=== PATIENT | female | born 1935 | race Caucasian/White ===

== ENCOUNTER → 2016-10-04 | Outpatient (CLI) | payer MEDICARE ==
--- NOTE | 2016-10-04 10:26 | US ---
EXAMINATION TYPE: US kidneys/renal and bladder DATE OF EXAM: 10/04/2016 COMPARISON: US & CT CLINICAL HISTORY: N18.3 CKD STAGE 3. EXAM MEASUREMENTS: Right Kidney: 9.3 x 4.2 x 3.8 cm Left Kidney: 9.7 x 4.3 x 4.2 cm Right Kidney: cyst 1.8 x 1.5 x 1.8 cm Left Kidney: cyst 2.3 x 2.3 x 2.8 cm laterally Bladder: not well distended Bilateral Jets seen: only left jet seen several times in 3 minutes of scan time There is no evidence for hydronephrosis at this point in time. No nephrolithiasis is seen. Right-catrachito ed kidney cyst has decreased in size slightly in the interval. Left-sided kidney cyst at the lower po le may shows some abnormal internal echoes and has increased in size slightly in the interval. The ur inary bladder is anechoic. Cortical medullary differentiation is maintained bilaterally, there is cortical thinning as on prior exam. Gallstones are noted incidentally. IMPRESSION: Kidney cysts are present bilaterally. Kidney cysts are not simple cystic in appearance on ultrasound. Follow-up is recommended. Cortical thinning compatible with patient's history of chronic kidney dise ase. Additional findings above.
== END | disposition home or self-care (01) ==
LOC: RADUSWWP 09:23
PROVIDERS: ATTEND Internal Medicine Nephrology
DX: N28.1 Cyst of kidney, acquired (principal); N18.3 Chronic kidney disease, stage 3 (moderate)
CPT/HCPCS: 76770

== ENCOUNTER → 2017-03-14 | Outpatient (CLI) | payer MEDICARE ==
--- NOTE | 2017-03-14 11:34 | US ---
EXAMINATION TYPE: US kidneys/renal and bladder DATE OF EXAM: 03/14/2017 COMPARISON: 10/04/2016 CLINICAL HISTORY: 81-year-old female N28.1 Renal Cysts. Follow up renal cysts TECHNIQUE: Multiple sonographic images of the kidneys and bladder are obtained. FINDINGS: Right Kidney: 9.5 x 4.0 x 4.5 cm without hydronephrosis. There is a medial anechoic to hypoechoic st ructure measuring 2.0 cm. Previously measuring 1.8 cm. Left Kidney: 9.4 x 4.0 x 3.4 cm without hydronephrosis. There is a lateral anechoic to hypoechoic str ucture measuring 2.6 cm. Previously measuring 2.8 cm. Partial distention of the bladder limits its evaluation. Both ureteral jets are visualized IMPRESSION: A 2.0 cm cystic lesion on the right (versus 1.8 cm, previously) and 2.6 cm on the left (2.8 cm, previ ously). Again, these do not appear to be entirely simple cysts at this time. Continued follow-up can be performed.
== END | disposition home or self-care (01) ==
LOC: RADUSWWP 09:00
PROVIDERS: ATTEND Internal Medicine Nephrology
DX: N28.1 Cyst of kidney, acquired (principal)
CPT/HCPCS: 76770

== ENCOUNTER → 2017-09-05 | Outpatient (CLI) | payer MEDICARE ==
--- NOTE | 2017-09-05 10:14 | US ---
EXAMINATION TYPE: US kidneys/renal and bladder DATE OF EXAM: 09/05/2017 COMPARISON: US 03/14/17 CLINICAL HISTORY: N28.1 Cyst of kidney, acquired. EXAM MEASUREMENTS: Right Kidney: 10.1 x 4.4 x 4.2 cm Left Kidney: 10.1 x 4.6 x 4.0 cm Post Void Residual Volume: 0 mL Right Kidney: Medial, Mid pole cyst = 2.0 x 2.0 x 1.7 cm (previously = 2.0 cm) Left Kidney: 2 adjacent, Lateral, mid pole cysts = 2.9 x 3.0 x 2.6 cm (previously 2.8 cm), 1.4 x 1.5 x 1.4 cm (not seen previously) Bladder: wnl Bilateral Jets seen: Yes Normal Post Void Residual: Yes Incidental finding of gallstones. IMPRESSION: 1. Bilateral renal cysts.
== END | disposition home or self-care (01) ==
LOC: RADUSWWP 08:55
PROVIDERS: ATTEND Internal Medicine Nephrology
DX: N28.1 Cyst of kidney, acquired (principal)
CPT/HCPCS: 76770

== ENCOUNTER 2020-04-28 14:15 | Inpatient (IN) | payer MEDICARE ==
--- NOTE | 2020-04-28 14:53 | ED ---
Lower Extremity Injury HPI - General Source: patient Mode of arrival: wheelchair Limitations: no limitations, physical limitation <Daniella Carrillo - Last Filed: 04/28/20 19:28> <Penny Bolanos - Last Filed: 05/05/20 16:18> - General Chief Complaint: Extremity Injury, Lower Stated Complaint: R Foot injury Time Seen by Provider: 04/28/20 14:29 - History of Present Illness Initial Comments: This is an 84-year-old female presenting today for chief complaint of right foot pain x 3 dasy. Patient states that she got out of bed on Sunday and struck her right foot on a bedpost. Patient states that her foot is black and blue and she can feel a pulling/painful sensation in the right calf. Patient admits to some mild foot swelling. Denies chest pain, shortness of breath, palpitations. She denies foot redness, or fevers. Patient denies cough, congestion. She denies orthopnea difficulty ambulating or shortness of breath on exertion. She denies lower extremity swelling. Patient HR is found to be elevated in triage-- patient denies history of anticoagulation use or atrial fibrillation. (Daniella Carrillo) - Related Data Home Medications Medication Instructions Recorded Confirmed Cholecalciferol [Vitamin D3 (25 25 mcg PO DAILY 04/28/20 04/28/20 Mcg = 1000 Iu)] Irbesartan/Hydrochlorothiazide 1 tab PO DAILY 04/28/20 04/28/20 [Irbesartan-Hctz 150-12.5 mg Tb] [place]-3 Fatty Acids/Fish Oil [Fish 1 cap PO DAILY 04/28/20 04/28/20 Oil 1,000 mg Softgel] Previous Rx's Medication Instructions Recorded Apixaban [Eliquis] 2.5 mg PO BID #60 tab 04/30/20 Allergies Allergy/AdvReac Type Severity Reaction Status Date / Time morphine AdvReac Nausea & Verified 04/28/20 15:55 Vomiting Review of Systems ROS Other: All systems not noted in ROS Statement are negative. <Daniella Carrillo - Last Filed: 04/28/20 19:28> ROS Other: All systems not noted in ROS Statement are negative. <Penny Bolanos - Last Filed: 05/05/20 16:18> ROS Statement: Those systems with pertinent positive or pertinent negative responses have been documented in the HPI. Past Medical History Past Medical History: Hypertension Additional Past Medical History / Comment(s): back pain, History of Any Multi-Drug Resistant Organisms: None Reported Past Surgical History: No Surgical Hx Reported Past Psychological History: No Psychological Hx Reported Smoking Status: Never smoker Past Alcohol Use History: None Reported Past Drug Use History: None Reported <Daniella Carrillo - Last Filed: 04/28/20 19:28> General Exam Limitations: no limitations, physical limitation <Daniella Carrillo - Last Filed: 04/28/20 19:28> - General Exam Comments Initial Comments: General: The patient is awake and alert, in no distress Eye: +3 mm pupils are equal, round and reactive to light, extra-ocular movements are intact. No nystagmus. There is normal conjunctiva bilaterally. No signs of icterus. Ears, nose, mouth and throat: There are moist mucous membranes and no oral lesions. Neck: The neck is supple, there is no tenderness or JVD. Cardiovascular: There is a increased rate and irregular rhythm. No murmur, rub or gallop is appreciated. Respiratory: Lungs are clear to auscultation, respirations are non-labored, breath sounds are equal. No wheezes, stridor, rales, or rhonchi. Musculoskeletal: On inspection of the right foot there is bruising over the dorsal aspect of the foot with tenderness to palpation. Achilles appears intact to palpation and there is plantar flexion with squeezing of the calf. Normal ROM, of the knees and ankle b/l with some calf tenderness wtih pointing of the right toe. NO obvious calf swelling, pain to palpation mid calf. Strength 5/5 of the LE b/l including at the knees, ankle and digits of the right foot equal in comparison to the left foot. Sensation intact of the LE b/l. Radial and DP pulses equal bilaterally 2+. Neurological: A&O x 3. CN II-XII intact grossly, There are no obvious motor or sensory deficits. Coordination appears grossly intact. Speech is normal. Skin: Skin is warm and dry and no rashes or lesions are noted. Psychiatric: Cooperative, appropriate mood & affect, normal judgment. (Dainella Carrillo) Course Vital Signs 03/17/21 03/17/21 03/17/21 14:18 15:37 17:46 Temperature 98.1 F Pulse Rate 110 H 113 H 113 H Pulse Rate [ Apical] Respiratory 18 16 16 Rate Blood Pressure 146/79 151/75 142/100 Blood Pressure [Right Arm] O2 Sat by Pulse 97 98 99 Oximetry 04/28/20 04/28/20 18:35 18:44 Temperature 99.9 F H Pulse Rate 103 H Pulse Rate [ 99 Apical] Respiratory 18 18 Rate Blood Pressure 145/79 Blood Pressure 146/71 [Right Arm] O2 Sat by Pulse 97 100 Oximetry Medical Decision Making - Lab Data Result diagrams: 04/28/20 15:05 04/28/20 15:05 <Daniella Carrillo - Last Filed: 04/28/20 19:28> - Lab Data Result diagrams: 05/02/20 06:53 05/05/20 07:38 <Penny Bolanos - Last Filed: 05/05/20 16:18> - Medical Decision Making 84-year-old female presenting to the ER for chief complaint of stepping right foot 3 days ago with her now right calf pain. Ultrasound negative for DVT. VQ scan low probably for pulmonary embolism she denies any chest pain shortness of breath orthopnea. Was found to be in atrial fibrillation with RVR and arrival. Patient has findings concerning for developing heart failure. Patient will be admitted for new-onset A. fib as well as CHF. Patient given one dose of lasix, cardiem drop/bolus initiated per request attending Yandy Bolanos. She spoke with Yandy Randhawa who accepted admission. Cardiology on consultation (Daniella Carrillo) I was available for consultation in the emergency department. The history and physical exam were done by the midlevel provider. I was consulted for this patients care. I reviewed the case with the midlevel provider and based on their presentation of the patient, I agree with the assessment, medical decision making and plan of care as documented. Chart was dictated using Nan[employer] dictation software. Attempts were made to correct any dictation errors however some typographical errors may persist. Patient was seen during a national state of emergency due to the Covid-19 pandemic. (Penny Bolanos) - Lab Data Lab Results 04/28/20 04/28/20 04/28/20 Range/Units 15:05 15:05 15:05 WBC 4.8 (3.8-10.6) k/uL RBC 4.49 (3.80-5.40) m/uL Hgb 13.4 (11.4-16.0) gm/dL Hct 39.8 (34.0-46.0) % MCV 88.6 (80.0-100.0) fL MCH 29.9 (25.0-35.0) pg MCHC 33.7 (31.0-37.0) g/dL RDW 12.5 (11.5-15.5) % Plt Count 362 (150-450) k/uL MPV 6.7 Neutrophils % 80 % Lymphocytes % 8 % Monocytes % 9 % Eosinophils % 1 % Basophils % 1 % Neutrophils # 3.9 (1.3-7.7) k/uL Lymphocytes # 0.4 L (1.0-4.8) k/uL Monocytes # 0.4 (0-1.0) k/uL Eosinophils # 0.0 (0-0.7) k/uL Basophils # 0.0 (0-0.2) k/uL D-Dimer 1.63 H (<0.60) mg/L FEU Sodium 129 L (137-145) mmol/L Potassium 4.4 (3.5-5.1) mmol/L Chloride 96 L (98-107) mmol/L Carbon Dioxide 19 L (22-30) mmol/L Anion Gap 14 mmol/L BUN 47 H (7-17) mg/dL Creatinine 1.65 H (0.52-1.04) mg/dL Est GFR (CKD-EPI)AfAm 33 (>60 ml/min/1.73 sqM) Est GFR (CKD-EPI)NonAf 28 (>60 ml/min/1.73 sqM) Glucose 118 H (74-99) mg/dL Calcium 9.5 (8.4-10.2) mg/dL Magnesium 1.7 (1.6-2.3) mg/dL Total Bilirubin 0.5 (0.2-1.3) mg/dL AST 32 (14-36) U/L ALT 16 (4-34) U/L Alkaline Phosphatase 89 (38-126) U/L Troponin I (0.000-0.034) ng/mL NT-Pro-B Natriuret Pep pg/mL Total Protein 8.1 (6.3-8.2) g/dL Albumin 4.4 (3.5-5.0) g/dL 04/28/20 04/28/20 Range/Units 15:05 15:05 WBC (3.8-10.6) k/uL RBC (3.80-5.40) m/uL Hgb (11.4-16.0) gm/dL Hct (34.0-46.0) % MCV (80.0-100.0) fL MCH (25.0-35.0) pg MCHC (31.0-37.0) g/dL RDW (11.5-15.5) % Plt Count (150-450) k/uL MPV Neutrophils % % Lymphocytes % % Monocytes % % Eosinophils % % Basophils % % Neutrophils # (1.3-7.7) k/uL Lymphocytes # (1.0-4.8) k/uL Monocytes # (0-1.0) k/uL Eosinophils # (0-0.7) k/uL Basophils # (0-0.2) k/uL D-Dimer (<0.60) mg/L FEU Sodium (137-145) mmol/L Potassium (3.5-5.1) mmol/L Chloride (98-107) mmol/L Carbon Dioxide (22-30) mmol/L Anion Gap mmol/L BUN (7-17) mg/dL Creatinine (0.52-1.04) mg/dL Est GFR (CKD-EPI)AfAm (>60 ml/min/1.73 sqM) Est GFR (CKD-EPI)NonAf (>60 ml/min/1.73 sqM) Glucose (74-99) mg/dL Calcium (8.4-10.2) mg/dL Magnesium (1.6-2.3) mg/dL Total Bilirubin (0.2-1.3) mg/dL AST (14-36) U/L ALT (4-34) U/L Alkaline Phosphatase (38-126) U/L Troponin I <0.012 (0.000-0.034) ng/mL NT-Pro-B Natriuret Pep 2170 pg/mL Total Protein (6.3-8.2) g/dL Albumin (3.5-5.0) g/dL Critical Care Time Critical Care Time: Yes <Penny Bolanos - Last Filed: 05/05/20 16:18> Critical Care Time: 32 minutes - identification that patient in afib with rvr requiring iv cardizem (Penny Bolanos) Disposition Is patient prescribed a controlled substance at d/c from ED?: No Time of Disposition: 18:14 Decision to Admit Reason: Admit from EC Decision Date: 04/28/20 Decision Time: 18:14 <Daniella Carrillo - Last Filed: 04/28/20 19:28> <Penny Bolanos - Last Filed: 05/05/20 16:18> Clinical Impression: Traumatic ecchymosis of right foot, Right calf pain, New onset atrial fibrillation, New onset of congestive heart failure Disposition: ADMITTED IP TO THIS HOSP Condition: Stable
[2020-04-28 15:20] LABS: Basophils % (A) 1 %; Eosinophils % (A) 1 %; HCT 39.8 % (34.0-46.0); HGB 13.4 gm/dL (11.4-16.0); Lymphocytes # (A) 0.4 k/uL (1.0-4.8); Lymphocytes % (A) 8 %; MCH 29.9 pg (25.0-35.0); MCHC 33.7 g/dL (31.0-37.0); MCV 88.6 fL (80.0-100.0); Mean Platelet Volume 6.7; Monocytes # (A) 0.4 k/uL (0-1.0); Monocytes % (A) 9 %; Neutrophils # (A) 3.9 k/uL (1.3-7.7); Neutrophils % (A) 80 %; Platelet Count 362 k/uL (150-450); RBC 4.49 m/uL (3.80-5.40); RDW 12.5 % (11.5-15.5); WBC 4.8 k/uL (3.8-10.6)
[2020-04-28 15:22] LABS: Potassium 4.4 mmol/L (3.5-5.1)
[2020-04-28 15:23] LABS: Albumin 4.4 g/dL (3.5-5.0); Calcium 9.5 mg/dL (8.4-10.2); Magnesium 1.7 mg/dL (1.6-2.3); Total Bilirubin 0.5 mg/dL (0.2-1.3); Total Protein 8.1 g/dL (6.3-8.2)
--- NOTE | 2020-04-28 15:44 | XR ---
EXAMINATION TYPE: XR chest 2V DATE OF EXAM: 04/28/2020 COMPARISON: Chest x-ray January 12, 2015 HISTORY: New onset atrial fibrillation. Recent fall injury. TECHNIQUE: Frontal and lateral views of the chest are obtained. FINDINGS: There is chronic parenchymal change bilaterally redemonstrated. Persistent cardiomegaly wi th atherosclerotic aorta. No pleural effusion or pneumothorax seen bilaterally. Increasing reticular interstitial and faint alveolar prominence bilaterally The osseous structures are intact. IMPRESSION: Cardiomegaly and chronic parenchymal changes with suggestion of new bilateral multifocal edema and/or infiltrates. Favor CHF exacerbation. Underlying infection such as covid-19 not excluded , correlate clinically.
[2020-04-28] MEDS ORDERED: SODIUM CHLORIDE 0.9% 1,000 ML IV SCH (15:45)
--- NOTE | 2020-04-28 15:46 | XR ---
EXAMINATION TYPE: XR tibia fibula RT DATE OF EXAM: 04/28/2020 CLINICAL HISTORY: Fall injury with bruising swelling and pain. TECHNIQUE: Two views of the right leg are obtained. COMPARISON: None. FINDINGS: Osseous structures are demineralized. There are suspected subacute or chronic fracture thr ough proximal fibular diaphysis. No acute fracture or dislocation is seen. Severe narrowing patellofe moral compartment right knee. The ankle joint appears within normal limits. Mild to moderate diffuse subcutaneous edema noted. IMPRESSION: There is no acute fracture or dislocation seen in the right tibia or fibula.
--- NOTE | 2020-04-28 15:47 | XR ---
EXAMINATION TYPE: XR foot complete RT DATE OF EXAM: 04/28/2020 CLINICAL HISTORY: Fall injury with pain TECHNIQUE: Frontal, lateral, and oblique images of the right foot are obtained. COMPARISON: None FINDINGS: Osseous structures are demineralized. Pes planus deformity. Moderate size inferior calcanea l spur There is no acute fracture/dislocation evident in the right foot. The joint spaces in the rig ht foot appear within normal limits. [id number] diffuse subcutaneous edema. IMPRESSION: There is no acute fracture or dislocation in the right foot.
--- NOTE | 2020-04-28 15:48 | US ---
EXAMINATION TYPE: US venous doppler duplex LE RT DATE OF EXAM: 04/28/2020 3:40 PM COMPARISON: NONE CLINICAL HISTORY: calf pain right. hurt toe pain SIDE PERFORMED: Right TECHNIQUE: The lower extremity deep venous system is examined utilizing real time linear array sonog tamar with graded compression, doppler sonography and color-flow sonography. VESSELS IMAGED: Common Femoral Vein Deep Femoral Vein Greater Saphenous Vein * Femoral Vein Popliteal Vein Small Saphenous Vein * Proximal Calf Veins (* superficial vessels) Right Leg: Negative for DVT Grayscale, color doppler, spectral doppler imaging performed of the deep veins of the right lower ext remity. There is normal flow, compressibility, vascular waveforms. IMPRESSION: No ultrasound evidence for acute DVT in the right lower extremity.
[2020-04-28] MEDS ORDERED: FUROSEMIDE 10 MG/ML 4 ML VIAL IV STA (16:11)
--- NOTE | 2020-04-28 17:30 | NM ---
EXAMINATION TYPE: NM pul vent and perfuse DATE OF EXAM: 04/28/2020 COMPARISON: NONE HISTORY: Calf pain. Elevated d-dimer. TECHNIQUE: Utilizing inhalation of 67 mCi Tc 99m DTPA aerosol and intravenous injection of 5.2 mCi o f Tc 99m MAA, ventilation and perfusion images are acquired post injection in multiple projections. FINDINGS: There are small matching subsegmental perfusion and ventilation defects in both upper lobes. There is no mismatch. Is fairly normal perfusion of the lower lobes.. IMPRESSION: There is low probability of pulmonary embolism. There is evidence of mild airway disease.
[2020-04-28] MEDS ORDERED: DILTIAZEM DRIP BOLUS FROM BAG 1 MG SOLN IV ONE (17:48)
[2020-04-28] MEDS ORDERED: DILTIAZEM 125 MG in SODIUM CHLORIDE 0.9% 100 ML IV SCH (18:00)
[2020-04-28] MEDS ORDERED: NALOXONE 0.4 MG/ML 1 ML VIAL IV PRN (18:13)
[2020-04-29] MEDS ORDERED: HEPARIN SODIUM,PORCINE 5,000 UNIT/ML 1 ML VIAL IV ONE (08:35)
[2020-04-29] MEDS ORDERED: HEPARIN SODIUM,PORCINE 5,000 UNIT/ML 1 ML VIAL IV PRN (08:35)
[2020-04-29] MEDS ORDERED: LOSARTAN-HCTZ 50-12.5 MG 1 EACH TAB PO SCH (09:00)
[2020-04-29 09:10] LABS: Basophils % (A) 0 %; Eosinophils % (A) 0 %; HCT 42.7 % (34.0-46.0); Lymphocytes # (A) 0.4 k/uL (1.0-4.8); Lymphocytes % (A) 8 %; MCH 29.4 pg (25.0-35.0); MCHC 32.9 g/dL (31.0-37.0); MCV 89.2 fL (80.0-100.0); Mean Platelet Volume 6.4; Monocytes # (A) 0.5 k/uL (0-1.0); Monocytes % (A) 11 %; Neutrophils # (A) 3.6 k/uL (1.3-7.7); Neutrophils % (A) 78 %; Platelet Count 355 k/uL (150-450); RBC 4.78 m/uL (3.80-5.40); RDW 12.6 % (11.5-15.5); WBC 4.6 k/uL (3.8-10.6)
[2020-04-29 09:18] LABS: Partial Thromboplastin Time 24.9 sec (22.0-30.0); Prothrombin Time 10.4 sec (9.0-12.0)
[2020-04-29] MEDS: METOPROLOL TARTRATE 25 MG TAB PO SCH ×2 (09:58→21:02)
[2020-04-29] MEDS: HEPARIN SOD,PORK IN 0.45% NACL 25,000 UNIT in 0.45% NACL 1 250ML.BAG IV SCH (09:59)
[2020-04-29 11:08] LABS: Calcium 9.6 mg/dL (8.4-10.2); Potassium 4.6 mmol/L (3.5-5.1)
[2020-04-29] MEDS: DILTIAZEM ORAL 30 MG TAB PO SCH ×3 (12:28→21:02)
[2020-04-29] MEDS: SODIUM CHLORIDE 0.9% 1,000 ML IV SCH (12:29)
--- NOTE | 2020-04-29 13:06 | ECHOF ---
Referral Reason:afib, LV function MEASUREMENTS -------- HEIGHT: 152.4 cm WEIGHT: 70.3 kg BP: RVIDd: 3.1 cm (< 3.3) IVSd: 1.5 cm (0.6 - 1.1) LVIDd: 2.9 cm (3.9 - 5.3) LVPWd: 1.4 cm (0.6 - 1.1) IVSs: 1.9 cm LVIDs: 2.7 cm LVPWs: 1.4 cm LA Diam: 3.5 cm (2.7 - 3.8) LAESV Index (A-L): 18.45 ml/m Ao Diam: 3.1 cm (2.0 - 3.7) AV Cusp: 1.7 cm (1.5 - 2.6) MV EXCURSION: 20.824 mm (> 18.000) MV EF SLOPE: 119 mm/s (70 - 150) EPSS: 0.6 cm RAP: 5.00 mmHg RVSP: 23.14 mmHg FINDINGS -------- Atrial fibrillation. This was a technically adequate study. The left ventricular size is normal. There is moderate concentric left ventricular hypertrophy. O verall left ventricular systolic function is normal with, an EF between 60 - 65 %. The right ventricle is normal in size. Normal LA size by volume 22+/-6 ml/m2. The right atrium is normal in size. Interatrial and interventricular septum intact. There is mild aortic valve sclerosis. Mild mitral annular calcification present. Mild tricuspid regurgitation present. Right ventricular systolic pressure is normal at < 35 mmHg. The pulmonic valve was not well visualized. The aortic root size is normal. Normal inferior vena cava with normal inspiratory collapse consistent with estimated right atrial pre ssure of 5 mmHg. There is no pericardial effusion. CONCLUSIONS -------- 1. The left ventricular size is normal. 2. There is moderate concentric left ventricular hypertrophy. 3. Overall left ventricular systolic function is normal with, an EF between 60 - 65 %. 4. There is mild aortic valve sclerosis. 5. Mild mitral annular calcification present. 6. Mild tricuspid regurgitation present. 7. There is no pericardial effusion. BINMAN: Ros Latif RDCS
--- NOTE | 2020-04-29 13:18 | P.CRDCN ---
History of Present Illness Consult date: 04/29/20 History of present illness: CHIEF COMPLAINT: new onset A. fib HISTORY OF PRESENT ILLNESS: This is a 84-year-old female with a past medical history significant for hypertension. We have been asked to see the patient in consultation for new-onset atrial fibrillation. Patient initially presented to the hospital due to right foot pain. Patient apparently struck her foot on a bedpost a few days prior. Patient was found to be positive for coronavirus. Patient was found to be in A. fib with RVR in the emergency room. Patient has no prior history of atrial fibrillation. Patient was started on IV cardizem. She remains in atrial fibrillation with controlled ventricular rate. DIAGNOSTICS: EKG reveals atrial fibrillation with RVR. left axis deviation. Chest xray cardiomegaly and chronic parenchymal changes with suggestion of new bilateral multifocal edema and/or infiltrates. right lower extremity Doppler: Negative for DVT VQ scan: Low probability for PE Laboratory data: WBC 4.6. Hemoglobin 14.0. Platelet count 355. Sodium 129. Potassium 4.4. BUN 47. Creatinine 1.65. Magnesium 1.7. Current home cardiac medications include Irbesartan-hctz 150-12.5mg daily REVIEW OF SYSTEMS: Thorough review of systems not completed secondary to limited evaluation/examination and due to Covid19 PHYSICAL EXAM: Thorough physical exam not completed secondary to limited evaluation/examination and due to Covid19 ASSESSMENT: Acute Covid 19 New-onset atrial fibrillation with RVR Hypertension Right foot injury Acute kidney injury, unknown if CKD PLAN: Obtain 2D echo to assess cardiac structure and function Begin metoprolol 25 mg twice a day Discontinue IV Cardizem Begin IV heparin Check TSH Further recommendations pending patient's course Nurse practitioner note has been reviewed by physician. Signing provider agrees with the documented findings, assessment, and plan of care. Past Medical History Past Medical History: Hypertension Additional Past Medical History / Comment(s): back pain, History of Any Multi-Drug Resistant Organisms: None Reported Past Surgical History: No Surgical Hx Reported Past Psychological History: No Psychological Hx Reported Smoking Status: Never smoker Past Alcohol Use History: None Reported Past Drug Use History: None Reported Medications and Allergies Home Medications Medication Instructions Recorded Confirmed Type Cholecalciferol [Vitamin D3 (25 25 mcg PO DAILY 04/28/20 04/28/20 History Mcg = 1000 Iu)] Irbesartan/Hydrochlorothiazide 1 tab PO DAILY 04/28/20 04/28/20 History [Irbesartan-Hctz 150-12.5 mg Tb] [place]-3 Fatty Acids/Fish Oil [Fish 1 cap PO DAILY 04/28/20 04/28/20 History Oil 1,000 mg Softgel] Allergies Allergy/AdvReac Type Severity Reaction Status Date / Time morphine AdvReac Nausea & Verified 04/28/20 15:55 Vomiting Physical Exam Vitals: Vital Signs Temp Pulse Pulse Resp BP BP Pulse Ox 04/29/20 02:00 99 18 04/28/20 18:44 99.9 F H 99 18 146/71 100 04/28/20 18:35 103 H 18 145/79 97 04/28/20 17:46 113 H 16 142/100 99 04/28/20 15:37 113 H 16 151/75 98 04/28/20 14:18 98.1 F 110 H 18 146/79 97 Intake and Output 04/28/20 04/29/20 04/29/20 22:59 06:59 14:59 Output Total 100 Balance -100 Output: Urine 100 Other: Weight 68.5 kg Results 04/29/20 08:56 04/29/20 08:56 Cardiac Enzymes 04/28/20 04/28/20 Range/Units 15:05 15:05 AST 32 (14-36) U/L Troponin I <0.012 (0.000-0.034) ng/mL Coagulation 04/29/20 Range/Units 08:56 PT 10.4 (9.0-12.0) sec APTT 24.9 (22.0-30.0) sec CBC 04/28/20 04/29/20 Range/Units 15:05 08:56 WBC 4.8 4.6 (3.8-10.6) k/uL RBC 4.49 4.78 (3.80-5.40) m/uL Hgb 13.4 14.0 (11.4-16.0) gm/dL Hct 39.8 42.7 (34.0-46.0) % Plt Count 362 355 (150-450) k/uL Comprehensive Metabolic Panel 04/28/20 Range/Units 15:05 Sodium 129 L (137-145) mmol/L Potassium 4.4 (3.5-5.1) mmol/L Chloride 96 L (98-107) mmol/L Carbon Dioxide 19 L (22-30) mmol/L BUN 47 H (7-17) mg/dL Creatinine 1.65 H (0.52-1.04) mg/dL Glucose 118 H (74-99) mg/dL Calcium 9.5 (8.4-10.2) mg/dL AST 32 (14-36) U/L ALT 16 (4-34) U/L Alkaline Phosphatase 89 (38-126) U/L Total Protein 8.1 (6.3-8.2) g/dL Albumin 4.4 (3.5-5.0) g/dL Current Medications Generic Name Dose Route Start Last Admin Trade Name Freq PRN Reason Stop Dose Admin HCTZ/Losartan Potassium 1 each 04/29/20 09:00 04/29/20 09:58 Losartan-Hctz 50-12.5 Mg 1 Each Tab PO 1 each DAILY ALINA Administration Heparin Sodium (Porcine) 0 unit 04/29/20 08:35 Heparin Sodium,Porcine 5,000 Unit/Ml 1 Ml Vial IV PER PROTOCOL PRN Low PTT Protocol Diltiazem HCl 125 mg/ Sodium 125 mls @ 5 mls/hr 04/28/20 18:00 04/28/20 18:33 Chloride IV 2.5 mg/hr .Q24H ALINA 2.5 mls/hr Administration 5 MG/HR Heparin Sodium/Sodium Chloride 250 mls @ 8.22 mls/hr 04/29/20 08:45 04/29/20 09:59 25,000 unit/ Sodium Chloride IV 12 units/kg/hr .Q24H ALINA 8.22 mls/hr Administration Protocol 12 UNITS/KG/HR Metoprolol Tartrate 25 mg 04/29/20 09:00 04/29/20 09:58 Metoprolol Tartrate 25 Mg Tab PO 25 mg BID ALINA Administration Naloxone HCl 0.2 mg 04/28/20 18:13 Naloxone 0.4 Mg/Ml 1 Ml Vial IV Q2M PRN Opioid Reversal Intake and Output 04/28/20 04/29/20 04/29/20 22:59 06:59 14:59 Output Total 100 Balance -100 Output: Urine 100 Other: Weight 68.5 kg 04/29/20 08:56 04/28/20 15:05
--- NOTE | 2020-04-29 22:16 | P.HPIM ---
History of Present Illness H&P Date: 04/29/20 Chief Complaint: Dizzy History of presenting complaint: This is a very pleasant 84-year-old patient of Dr. Sands. She presented to the ER after she had been complaining of right foot pain for 3 days. She told her she got out of bed on Sunday and struck her right foot on a bedpost. High right toe pink especially was black and blue and she had some painful sensation in the right calf. She felt a bit dizzy yesterday. No chest pain or palpitations. Decided to present to the ER. She is found to be in atrial fibrillation. With elevated ventricular rate. She was started on a Cardizem drip. Review of systems: GEN.: Tired EYES: None HEENT: None NECK: None RESPIRATORY: None CARDIOVASCULAR: None GASTROINTESTINAL: None GENITOURINARY: None MUSCULOSKELETAL: Joint pains LYMPHATICS: None HEMATOLOGICAL: None PSYCHIATRY: None NEUROLOGICAL: None Past medical history to include: Hypertension, back pain Social history: Daughter lives with her. No history of smoking or alcohol Family history: Reviewed, noncontributory to presentation Physical examination: VITAL SIGNS: 98.1, 110, 18, 146/79, 97% on room air GENERAL: BMI 29.5, declining in bed, awake. EYES: Pupils equal. Conjunctiva normal. HEENT: External appearance of nose and ears normal, oral cavity grossly normal. NECK: JVD not raised; masses not palpable. HEART: Heart sounds irregular; no edema. LUNGS: Respiratory rate normal; clear to auscultation. ABDOMEN: Soft, nontender, liver spleen not palpable, no masses palpable. PSYCH: Alert and oriented x3; mood and affect normal. NEUROLOGICAL: Cranial nerves grossly intact; no facial asymmetry, power and sensation grossly intact. LYMPHATICS: No lymph nodes palpable in the axilla and neck INVESTIGATIONS, reviewed in the clinical context: WBC 4.8 hemoglobin 13.4 platelets 362 sodium 129 bun 47 creatinine 1.65 Coronavirus [PCR] detected TSH 2.4 pro-BNP 2170 Troponin I less than 0.012 EKG tracing personally reviewed by me-atrial fibrillation with a rate of 128 Right foot [id number] for fracture Ultrasound venous Doppler right lower extremity: Negative for DVT Chest x-ray film personally reviewed by me-borderline cardiomegaly, bilateral infiltrates versus edema 2-D echocardiogram: Atrial fibrillation. EF 60-65%. Moderate concentric LVH Assessment and plan: -New onset of atrial fibrillation with a rapid ventricular rate. Patient started IV Cardizem., IV heparin -Acute congestive heart failure/pulmonary edema from underlying atrial fibrillation. Patient did get a dose of IV Lasix in the ER. -Essential hypertension. Patient now on Lopressor. Hyzaar and oral Cardizem -IV heparin monitoring -Hypertensive heart disease Cardiology consulted. Care was discussed with the patient. Will be put on anticoagulation. Given the low blood pressure. Will DC Hyzaar Event note Patient had an episode of about 2 minutes of slumping on the bed. Started throwing up. Telemetry -did not show any pauses or new arrhythmia. Heart rate was controlled. It was felt to be vasovagal. Patient Did come back to her normal self Past Medical History Past Medical History: Hypertension Additional Past Medical History / Comment(s): back pain, History of Any Multi-Drug Resistant Organisms: None Reported Past Surgical History: No Surgical Hx Reported Past Psychological History: No Psychological Hx Reported Smoking Status: Never smoker Past Alcohol Use History: None Reported Past Drug Use History: None Reported Medications and Allergies Home Medications Medication Instructions Recorded Confirmed Type Cholecalciferol [Vitamin D3 (25 25 mcg PO DAILY 04/28/20 04/28/20 History Mcg = 1000 Iu)] Irbesartan/Hydrochlorothiazide 1 tab PO DAILY 04/28/20 04/28/20 History [Irbesartan-Hctz 150-12.5 mg Tb] [place]-3 Fatty Acids/Fish Oil [Fish 1 cap PO DAILY 04/28/20 04/28/20 History Oil 1,000 mg Softgel] Allergies Allergy/AdvReac Type Severity Reaction Status Date / Time morphine AdvReac Nausea & Verified 04/28/20 15:55 Vomiting Physical Exam Vitals: Vital Signs Temp Pulse Pulse Resp BP BP Pulse Ox 04/29/20 02:00 99 18 04/28/20 18:44 99.9 F H 99 18 146/71 100 04/28/20 18:35 103 H 18 145/79 97 04/28/20 17:46 113 H 16 142/100 99 04/28/20 15:37 113 H 16 151/75 98 04/28/20 14:18 98.1 F 110 H 18 146/79 97 Intake and Output 04/28/20 04/29/2004/29/21 22:59 06:59 14:59 Output Total 100 Balance -100 Output: Urine 100 Other: Weight 68.5 kg Results CBC & Chem 7: 04/29/20 08:56 04/29/20 08:56 Labs: Abnormal Lab Results - Last 24 Hours (Table) 04/28/20 04/28/20 04/28/20 Range/Units 15:05 15:05 15:05 Lymphocytes # 0.4 L (1.0-4.8) k/uL D-Dimer 1.63 H (<0.60) mg/L FEU Sodium 129 L (137-145) mmol/L Chloride 96 L (98-107) mmol/L Carbon Dioxide 19 L (22-30) mmol/L BUN 47 H (7-17) mg/dL Creatinine 1.65 H (0.52-1.04) mg/dL Glucose 118 H (74-99) mg/dL Coronavirus (PCR) (Not Detectd) 04/28/20 04/29/20 Range/Units 17:46 08:56 Lymphocytes # 0.4 L (1.0-4.8) k/uL D-Dimer (<0.60) mg/L FEU Sodium (137-145) mmol/L Chloride (98-107) mmol/L Carbon Dioxide (22-30) mmol/L BUN (7-17) mg/dL Creatinine (0.52-1.04) mg/dL Glucose (74-99) mg/dL Coronavirus (PCR) Detected A (Not Detectd)
[2020-04-30] MEDS: MELATONIN 3 MG TABLET PO PRN ×2 (00:19→21:04)
[2020-04-30 07:58] LABS: Basophils % (A) 1 %; Eosinophils % (A) 0 %; HCT 35.5 % (34.0-46.0); HGB 11.9 gm/dL (11.4-16.0); Lymphocytes # (A) 0.5 k/uL (1.0-4.8); Lymphocytes % (A) 13 %; MCH 30.1 pg (25.0-35.0); MCHC 33.7 g/dL (31.0-37.0); MCV 89.4 fL (80.0-100.0); Mean Platelet Volume 6.9; Monocytes # (A) 0.3 k/uL (0-1.0); Monocytes % (A) 8 %; Neutrophils # (A) 2.6 k/uL (1.3-7.7); Neutrophils % (A) 76 %; Platelet Count 296 k/uL (150-450); RBC 3.97 m/uL (3.80-5.40); RDW 12.1 % (11.5-15.5); WBC 3.4 k/uL (3.8-10.6)
--- NOTE | 2020-04-30 07:59 | XR ---
EXAMINATION TYPE: XR chest 1V DATE OF EXAM: 04/30/2020 COMPARISON: 04/28/2020 INDICATION: Coated TECHNIQUE: Single frontal view of the chest is obtained. FINDINGS: The heart size is normal. The pulmonary vasculature is normal. Right basilar infiltrates are present. Findings are worsening over the interval. Nonspecific infiltra shannan in the mid and upper lung brandt IMPRESSION: 1. Worsening bilateral lung infiltrates greater at the lung bases. Findings can be compatible with at ypical pneumonia.
[2020-04-30] MEDS: METOPROLOL TARTRATE 25 MG TAB PO SCH (08:17)
[2020-04-30] MEDS: DILTIAZEM ORAL 30 MG TAB PO SCH (08:17)
[2020-04-30] MEDS: SODIUM CHLORIDE 0.9% 1,000 ML IV SCH ×2 (08:18→18:32)
[2020-04-30 08:22] LABS: Calcium 8.2 mg/dL (8.4-10.2)
[2020-04-30] MEDS: APIXABAN 2.5 MG TABLET PO SCH ×2 (11:50→21:04)
[2020-04-30] MEDS: HEPARIN SOD,PORK IN 0.45% NACL 25,000 UNIT in 0.45% NACL 1 250ML.BAG IV SCH (11:58)
--- NOTE | 2020-04-30 15:29 | P.PN ---
Subjective Progress Note Date: 04/30/20 CHIEF COMPLAINT: new onset A. fib HISTORY OF PRESENT ILLNESS: 04/29/2020 This is a 84-year-old female with a past medical history significant for hypertension. We have been asked to see the patient in consultation for new- onset atrial fibrillation. Patient initially presented to the hospital due to right foot pain. Patient apparently struck her foot on a bedpost a few days prior. Patient was found to be positive for coronavirus. Patient was found to be in A. fib with RVR in the emergency room. Patient has no prior history of atrial fibrillation. Patient was started on IV cardizem. She remains in atrial fibrillation with controlled ventricular rate. EKG reveals atrial fibrillation with RVR. left axis deviation. Chest xray cardiomegaly and chronic parenchymal changes with suggestion of new bilateral multifocal edema and/or infiltrates. right lower extremity Doppler: Negative for DVT VQ scan: Low probability for PE Laboratory data: WBC 4.6. Hemoglobin 14.0. Platelet count 355. Sodium 129. Potassium 4.4. BUN 47. Creatinine 1.65. Magnesium 1.7. Current home cardiac medications include Irbesartan-hctz 150-12.5mg daily 04/30/2020 Per nursing, patient had an episode yesterday where she was sitting beside the bed and became pale, started vomiting, and was unresponsive for about 30 seconds. Her blood pressure at that time was 64/44. Her Cardizem was held yesterday. Patient's blood pressure this morning was 103/55. She received her dose of Cardizem and metoprolol. Since administration, the patient became bradycardic with a heart rate in the 40s. She remains on IV heparin. Echocardiogram completed revealed ejection fraction 60-65% with mild tricuspid regurgitation. PHYSICAL EXAM: Thorough physical exam not completed secondary to limited evaluation/examination and due to Covid19 ASSESSMENT: Acute Covid 19 New-onset atrial fibrillation with RVR Hypertension Right foot injury Acute kidney injury, unknown if CKD Bradycardia Hypotension PLAN: Discontinue Cardizem Change dosing of metoprolol to 12.5 mg 3 times a day Continue telemetry monitoring Discontinue IV heparin Begin Eliquis 2.5 mg twice a day Further recommendations pending patient's course Nurse practitioner note has been reviewed by physician. Signing provider agrees with the documented findings, assessment, and plan of care. Objective - Vital Signs Vital signs: Vital Signs Temp 98.1 F 04/30/20 12:00 Pulse 60 04/30/20 14:00 Resp 18 04/30/20 14:00 BP 101/56 04/30/20 12:00 Pulse Ox 97 04/30/20 12:00 Intake & Output 04/29/20 04/30/20 04/30/20 18:59 06:59 18:59 Intake Total 1201.923 283.052 240 Output Total 1 410 Balance 1200.923 -126.948 240 Weight 66.5 kg Intake: Intake, IV Titration 951.923 43.052 Amount Heparin Sod,Pork in 0.45% 51.923 43.052 NaCl 25,000 unit In 0.45 % NaCl 1 250ml.bag @ 12 UNITS/KG/HR 8.22 mls/hr IV .Q24H [facility] Rx#: [id number] Sodium Chloride 0.9% 1, 900 000 ml @ 75 mls/hr IV . [id number] [facility] Rx#:[id number] Oral 250 240 240 Output: Urine 410 Urine/Stool Mix 1 Other: Voiding Method Bedside Commode Bedpan # Voids 1 1 - Labs CBC & Chem 7: 04/30/20 06:47 04/30/20 06:47 Labs: Abnormal Lab Results - Last 24 Hours (Table) 04/29/20 04/29/20 04/30/20 Range/Units 15:18 22:51 06:47 WBC 3.4 L (3.8-10.6) k/uL Lymphocytes # 0.5 L (1.0-4.8) k/uL APTT 98.0 H 59.8 H (22.0-30.0) sec Sodium (137-145) mmol/L Carbon Dioxide (22-30) mmol/L BUN (7-17) mg/dL Creatinine (0.52-1.04) mg/dL Glucose (74-99) mg/dL Calcium (8.4-10.2) mg/dL 04/30/20 Range/Units 06:47 WBC (3.8-10.6) k/uL Lymphocytes # (1.0-4.8) k/uL APTT (22.0-30.0) sec Sodium 130 L (137-145) mmol/L Carbon Dioxide 20 L (22-30) mmol/L BUN 52 H (7-17) mg/dL Creatinine 1.55 H (0.52-1.04) mg/dL Glucose 101 H (74-99) mg/dL Calcium 8.2 L (8.4-10.2) mg/dL
[2020-04-30] MEDS: METOPROLOL TARTRATE 12.5 MG TAB PO SCH ×2 (16:51→21:04)
[2020-04-30] MEDS ORDERED: FUROSEMIDE 10 MG/ML 10 ML VIAL IV STA (17:37)
--- NOTE | 2020-04-30 20:36 | P.PN ---
Progress Note - Text Progress Note Date: 04/30/20 Chief Complaint: Dizzy History of presenting complaint: This is a very pleasant 84-year-old patient of Dr. Sands. She presented to the ER after she had been complaining of right foot pain for 3 days. She told her she got out of bed on Sunday and struck her right foot on a bedpost. High right toe pink especially was black and blue and she had some painful sensation in the right calf. She felt a bit dizzy yesterday. No chest pain or palpitations. Decided to present to the ER. She is found to be in atrial fibrillation. With elevated ventricular rate. She was started on a Cardizem drip. Admitted with uncontrolled atrial flutter fibrillation. Acute CHF exacerbation. Today-atrial fibrillation better control. I was called in the afternoon that patient's blood pressure is running a bit low. Also more short of breath. I did order dose of IV Lasix. IV fluids discontinued. Patient also was bradycardic earlier Review of systems: Was done for constitutional, cardiovascular, GI, pulmonary. relevant finding as above Active Medications Apixaban (Apixaban 2.5 Mg Tablet) 2.5 mg PO BID [facility] Last Admin: 04/30/20 11:50 Dose: 2.5 mg Documented by: Melatonin (Melatonin 3 Mg Tablet) 3 mg PO HS PRN PRN Reason: Insomnia Last Admin: 04/30/20 00:19 Dose: 3 mg Documented by: Metoprolol Tartrate (Metoprolol Tartrate 12.5 Mg Tab) 12.5 mg PO TID [facility] Last Admin: 04/30/20 16:51 Dose: Not Given Documented by: Naloxone HCl (Naloxone 0.4 Mg/Ml 1 Ml Vial) 0.2 mg IV Q2M PRN PRN Reason: Opioid Reversal Past medical history to include: Hypertension, back pain Social history: Daughter lives with her. No history of smoking or alcohol Family history: Reviewed, noncontributory to presentation Physical examination: VITAL SIGNS: 98.1, 45, 18, 101/56, 97% room air GENERAL: Sitting up in a chair a bit tired EYES: Pupils equal. Conjunctiva normal. HEENT: External appearance of nose and ears normal, oral cavity grossly normal. NECK: JVD unable to assess masses not palpable. HEART: Heart sounds irregular; no edema. LUNGS: Respiratory rate increased, basal crackles ABDOMEN: Soft, nontender, liver spleen not palpable, no masses palpable. PSYCH: Alert and oriented x3; mood and affect normal. Also put the patient on Decadron INVESTIGATIONS, reviewed in the clinical context: Chest x-ray [April 30]: Basilar infiltrates April 30: WBC 3.4 hemoglobin 11.9 potassium 4 bun 52 creatinine 1.55 WBC 4.8 hemoglobin 13.4 platelets 362 sodium 129 bun 47 creatinine 1.65 Coronavirus [PCR] detected TSH 2.4 pro-BNP 2170 Troponin I less than 0.012 EKG tracing personally reviewed by me-atrial fibrillation with a rate of 128 Right foot [id number] for fracture Ultrasound venous Doppler right lower extremity: Negative for DVT Chest x-ray film personally reviewed by me-borderline cardiomegaly, bilateral infiltrates versus edema 2-D echocardiogram: Atrial fibrillation. EF 60-65%. Moderate concentric LVH Assessment and plan: -New onset of atrial fibrillation with a rapid ventricular rate. Patient started IV Cardizem., IV heparin-discontinued. Started on eliquis -Acute congestive heart failure/pulmonary edema from underlying atrial fibrillation. One more dose of IV Lasix today. -Essential hypertension. Patient now on Lopressor. Hyzaar and oral Cardizem -IV heparin monitoring -Hypertensive heart disease -Acute hypoxic respiratory failure possibly combination of fluid and COVID 19. -Bradycardia from patient being on Lopressor and Cardizem. Cardizem discontinued today -COVID 19 pneumonia. It was unclear if this s playing a predominant role in the presentation. Add Decadron 6 mg daily.
[2020-04-30] MEDS: dexAMETHasone 2 MG TAB PO SCH (21:04)
[2020-05-01] MEDS: dexAMETHasone 2 MG TAB PO SCH (08:20)
[2020-05-01] MEDS: METOPROLOL TARTRATE 12.5 MG TAB PO SCH (08:20)
[2020-05-01] MEDS: APIXABAN 2.5 MG TABLET PO SCH ×2 (08:20→20:07)
[2020-05-01 08:26] LABS: Basophils % (A) 0 %; Eosinophils % (A) 0 %; HCT 41.5 % (34.0-46.0); HGB 14.1 gm/dL (11.4-16.0); Lymphocytes # (A) 0.4 k/uL (1.0-4.8); Lymphocytes % (A) 14 %; MCH 30.3 pg (25.0-35.0); MCV 89.1 fL (80.0-100.0); Mean Platelet Volume 6.7; Monocytes # (A) 0.1 k/uL (0-1.0); Monocytes % (A) 2 %; Neutrophils # (A) 2.4 k/uL (1.3-7.7); Neutrophils % (A) 83 %; Platelet Count 339 k/uL (150-450); RBC 4.65 m/uL (3.80-5.40); WBC 2.9 k/uL (3.8-10.6)
[2020-05-01 08:44] LABS: C Reactive Protein 54.5 mg/L (<10.0); Magnesium 1.7 mg/dL (1.6-2.3); Potassium 4.4 mmol/L (3.5-5.1)
--- NOTE | 2020-05-01 13:15 | P.CNPUL ---
History of Present Illness Consult date: 05/01/20 Requesting physician: Guy Randhawa Chief complaint: Right foot pain, status post trauma History of present illness: This is a pleasant 84-year-old female patient with history of hypertension, back pain. She presented to the emergency room on 04/28/2020 after developing right foot pain for 3 days. She had struck the bedpost with her foot and it has since become more painful swollen black and blue. She denied any shortness of breath, cough congestion. No chest pain. She was noted to have elevated heart rate and was found to be in atrial fibrillation with rapid ventricular response. New onset. She was admitted for the same. Doppler of the right lower extremity negative for DVT. She also tested positive for CoVID 19 infection. No nausea, vomiting diarrhea. No fever, chills or night sweats. VQ scan revealed low probability of pulmonary embolism. Echocardiogram revealed normal left ventricular systolic function with ejection fraction 60-65%. Her follow-up chest x-ray yesterday revealed worsening bilateral lung infiltrates greater at the bases. She did receive 60 mg of IV Lasix on 04/30/2020. She is seen today in consultation on the selective care unit. Currently resting quite comfortably in bed. Awake and alert in no acute distress. Maintaining O2 saturations in the low 90s on room air. She's been afebrile. Hemodynamically stable. Heart rate controlled. White count 2.9. Hemoglobin 14.1. Lymphocytes 0.4. D-dimer 1.81. Sodium 132. Potassium 4.4. Creatinine 1.61. C-reactive protein 54.5. ProBNP 2930. This morning she had been having sinus pauses up to 2 seconds. Metoprolol has been discontinued. She is anticoagulated with Eliquis. Review of Systems REVIEW OF SYSTEMS: CONSTITUTIONAL: Denies any recent significant weight loss or weight gain. EYES: Denies change in vision. EARS, NOSE, MOUTH, THROAT: Denies headaches, denies sore throat. CARDIOVASCULAR: Denies chest pain, palpitations or syncopal episodes. RESPIRATORY: Denies shortness of breath, cough, congestion or hemoptysis. GASTROINTESTINAL: Denies change in appetite, denies abdominal pain GENITOURINARY: Denies hematuria, denies infections. MUSKULOSKELETAL: Right foot pain, status post trauma. Denies pain, denies swelling. INTEGUMENTARY: Denies rash, denies eczema. NEUROLOGICAL: Denies recent memory loss, no recent seizure activity. PSYCHIATRIC: Denies anxiety, denies depression. HEMATOLOGIC/LYMPHATIC: Denies anemia, denies enlarged lymph nodes. Past Medical History Past Medical History: Hypertension Additional Past Medical History / Comment(s): back pain, History of Any Multi-Drug Resistant Organisms: None Reported Past Surgical History: No Surgical Hx Reported Past Psychological History: No Psychological Hx Reported Smoking Status: Never smoker Past Alcohol Use History: None Reported Past Drug Use History: None Reported Medications and Allergies Home Medications Medication Instructions Recorded Confirmed Type Cholecalciferol [Vitamin D3 (25 25 mcg PO DAILY 04/28/20 04/28/20 History Mcg = 1000 Iu)] Irbesartan/Hydrochlorothiazide 1 tab PO DAILY 04/28/20 04/28/20 History [Irbesartan-Hctz 150-12.5 mg Tb] [place]-3 Fatty Acids/Fish Oil [Fish 1 cap PO DAILY 04/28/20 04/28/20 History Oil 1,000 mg Softgel] Apixaban [Eliquis] 2.5 mg PO BID #60 tab 04/30/20 Rx Allergies Allergy/AdvReac Type Severity Reaction Status Date / Time morphine AdvReac Nausea & Verified 04/28/20 15:55 Vomiting Physical Exam Vitals: Vital Signs Temp Pulse Resp BP Pulse Ox 05/01/20 11:55 73 16 122/71 93 L 05/01/20 08:00 97.4 F L 67 16 107/61 96 05/01/20 03:28 99.1 F 89 18 105/51 94 L 05/01/20 02:00 16 04/30/20 23:38 99.0 F 73 16 111/62 94 L 04/30/20 20:00 99.2 F 94 20 133/76 92 L 04/30/20 16:00 98.6 F 90 18 134/63 89 L 04/30/20 14:00 60 18 Intake and Output 04/30/20 05/01/20 05/01/20 22:59 06:59 14:59 Intake Total 660 350 240 Output Total 850 1850 Balance -190 -1500 240 Intake: Oral 660 350 240 Output: Urine 850 1850 Other: Voiding Method Bedside Commode Bedside Commode Bedside Commode Bedpan # Voids 3 # Bowel Movements 1 Weight 69 kg GENERAL EXAM: Alert, pleasant 84-year-old female patient, on room air, comfortable in no apparent distress. HEAD: Normocephalic. EYES: Normal reaction of pupils, equal size. NOSE: Clear with pink turbinates. THROAT: No erythema or exudates. NECK: No masses, no JVD. CHEST: No chest wall deformity. LUNGS: Equal air entry with gadolinium crackles in bilateral bases. CVS: S1 and S2 normal with no audible murmur, regular rhythm. ABDOMEN: No hepatosplenomegaly, normal bowel sounds, no guarding or rigidity. SPINE: No scoliosis or deformity SKIN: No rashes CENTRAL NERVOUS SYSTEM: No focal deficits, tone is normal in all 4 extremities. EXTREMITIES: Ecchymosis to the right foot. There is no peripheral edema. No clubbing, no cyanosis. Peripheral pulses are intact. Results - Laboratory Findings CBC and BMP: 05/01/20 08:02 05/01/20 08:02 PT/INR, D-dimer PT 10.4 sec (9.0-12.0) 04/29/20 08:56 INR 1.0 (<1.2) 04/29/20 08:56 D-Dimer 1.81 mg/L FEU (<0.60) H 05/01/20 08:02 Abnormal lab findings: Abnormal Labs 04/28/20 04/28/20 04/28/20 15:05 15:05 15:05 WBC Lymphocytes # 0.4 L APTT D-Dimer 1.63 H Sodium 129 L Chloride 96 L Carbon Dioxide 19 L BUN 47 H Creatinine 1.65 H Glucose 118 H Calcium C-Reactive Protein Coronavirus (PCR) 04/28/20 04/29/20 04/29/20 17:46 08:56 08:56 WBC Lymphocytes # 0.4 L APTT D-Dimer Sodium 133 L Chloride 95 L Carbon Dioxide BUN 49 H Creatinine 1.64 H Glucose 114 H Calcium C-Reactive Protein Coronavirus (PCR) Detected A 04/29/20 04/29/20 04/30/20 15:18 22:51 06:47 WBC 3.4 L Lymphocytes # 0.5 L APTT 98.0 H 59.8 H D-Dimer Sodium Chloride Carbon Dioxide BUN Creatinine Glucose Calcium C-Reactive Protein Coronavirus (PCR) 04/30/20 05/01/20 05/01/20 06:47 08:02 08:02 WBC 2.9 L Lymphocytes # 0.4 L APTT D-Dimer 1.81 H Sodium 130 L Chloride Carbon Dioxide 20 L BUN 52 H Creatinine 1.55 H Glucose 101 H Calcium 8.2 L C-Reactive Protein Coronavirus (PCR) 05/01/20 08:02 WBC Lymphocytes # APTT D-Dimer Sodium 132 L Chloride 95 L Carbon Dioxide BUN 55 H Creatinine 1.61 H Glucose 254 H Calcium C-Reactive Protein 54.5 H Coronavirus (PCR) - Diagnostic Findings Chest x-ray: image reviewed Assessment and Plan Assessment: 1 Right foot pain secondary to trauma, no fractures identified 2 New onset atrial fibrillation, anticoagulated with Eliquis 3 Covid 19 infection 4 Acute renal failure 5 Hyponatremia 6 History of hypertension Plan: The patient was seen and evaluated by Dr. Almazan Asymptomatic Covid 19 infection, DC dexamethasone Chest x-ray, echocardiogram, perfusion scan and labs reviewed Received Lasix yesterday Metoprolol held due to bradycardia Anticoagulated with Eliquis Home once cleared by cardiology I, the cosigning physician, performed a history & physical examination of the patient. Lungs sounds with crackles in the bilateral posterior bases Maintaining good O2 saturations in the 90s on room air. I discussed the assessment and plan of care with my nurse practitioner, Tianna Torre. I attest to the above consultation as dictated by her. Time with Patient: Greater than 30
--- NOTE | 2020-05-01 14:16 | P.PN ---
Subjective Progress Note Date: 05/01/20 CHIEF COMPLAINT: new onset A. fib HISTORY OF PRESENT ILLNESS: 04/29/2020 This is a 84-year-old female with a past medical history significant for hypertension. We have been asked to see the patient in consultation for new- onset atrial fibrillation. Patient initially presented to the hospital due to right foot pain. Patient apparently struck her foot on a bedpost a few days prior. Patient was found to be positive for coronavirus. Patient was found to be in A. fib with RVR in the emergency room. Patient has no prior history of atrial fibrillation. Patient was started on IV cardizem. She remains in atrial fibrillation with controlled ventricular rate. EKG reveals atrial fibrillation with RVR. left axis deviation. Chest xray cardiomegaly and chronic parenchymal changes with suggestion of new bilateral multifocal edema and/or infiltrates. right lower extremity Doppler: Negative for DVT VQ scan: Low probability for PE Laboratory data: WBC 4.6. Hemoglobin 14.0. Platelet count 355. Sodium 129. Potassium 4.4. BUN 47. Creatinine 1.65. Magnesium 1.7. Current home cardiac medications include Irbesartan-hctz 150-12.5mg daily 04/30/2020 Per nursing, patient had an episode yesterday where she was sitting beside the bed and became pale, started vomiting, and was unresponsive for about 30 seconds. Her blood pressure at that time was 64/44. Her Cardizem was held yesterday. Patient's blood pressure this morning was 103/55. She received her dose of Cardizem and metoprolol. Since administration, the patient became bradycardic with a heart rate in the 40s. She remains on IV heparin. Echocardiogram completed revealed ejection fraction 60-65% with mild tricuspid regurgitation. 05/01/2020 Patient remains in atrial fibrillation with controlled ventricular rate. Patient having pauses overnight and also this morning while she is awake. Pauses around 2 seconds. Patient's Cardizem was discontinued yesterday secondary to bradycardia. Her metoprolol dose was decreased as well. PHYSICAL EXAM: Thorough physical exam not completed secondary to limited evaluation/examination and due to Covid19 ASSESSMENT: Acute Covid 19 New-onset atrial fibrillation with RVR Hypertension Right foot injury Acute kidney injury, unknown if CKD Bradycardia, resolved Hypotension, resolved PLAN: Discontinue metoprolol due to pauses on telemetry Continue telemetry monitoring Continue Eliquis for anticoagulation Further recommendations pending patient's course Nurse practitioner note has been reviewed by physician. Signing provider agrees with the documented findings, assessment, and plan of care. Objective - Vital Signs Vital signs: Vital Signs Temp 97.4 F L 05/01/20 08:00 Pulse 73 05/01/20 11:55 Resp 16 05/01/20 11:55 BP 122/71 05/01/20 11:55 Pulse Ox 93 L 05/01/20 11:55 Intake & Output 04/30/20 05/01/20 05/01/20 18:59 06:59 18:59 Intake Total 480 1010 240 Output Total 400 2300 Balance 80 -1290 240 Weight 69 kg Intake: Oral 480 1010 240 Output: Urine 400 2300 Other: Voiding Method Bedside Commode Bedside Commode Bedside Commode Bedpan # Voids 1 3 # Bowel Movements 1 - Labs CBC & Chem 7: 05/01/20 08:02 05/01/20 08:02 Labs: Abnormal Lab Results - Last 24 Hours (Table) 05/01/20 05/01/20 05/01/20 Range/Units 08:02 08:02 08:02 WBC 2.9 L (3.8-10.6) k/uL Lymphocytes # 0.4 L (1.0-4.8) k/uL D-Dimer 1.81 H (<0.60) mg/L FEU Sodium 132 L (137-145) mmol/L Chloride 95 L (98-107) mmol/L BUN 55 H (7-17) mg/dL Creatinine 1.61 H (0.52-1.04) mg/dL Glucose 254 H (74-99) mg/dL C-Reactive Protein 54.5 H (<10.0) mg/L
[2020-05-01] MEDS: MELATONIN 3 MG TABLET PO PRN (20:07)
--- NOTE | 2020-05-01 20:54 | P.PN ---
Progress Note - Text Progress Note Date: 05/01/20 Chief Complaint: Dizzy History of presenting complaint: This is a very pleasant 84-year-old patient of Dr. Sands. She presented to the ER after she had been complaining of right foot pain for 3 days. She told her she got out of bed on Sunday and struck her right foot on a bedpost. High right toe pink especially was black and blue and she had some painful sensation in the right calf. She felt a bit dizzy yesterday. No chest pain or palpitations. Decided to present to the ER. She is found to be in atrial fibrillation. With elevated ventricular rate. She was started on a Cardizem drip. Admitted with uncontrolled atrial flutter fibrillation. Acute CHF exacerbation. Received IV Lasix. Today-atrial fibrillation better control. Patient was bradycardic with sinus pauses. Beta [place] discontinued. Breathing better Review of systems: Was done for constitutional, cardiovascular, GI, pulmonary. relevant finding as above Active Medications Apixaban (Apixaban 2.5 Mg Tablet) 2.5 mg PO BID [facility] Last Admin: 05/01/20 20:07 Dose: 2.5 mg Documented by: Melatonin (Melatonin 3 Mg Tablet) 3 mg PO HS PRN PRN Reason: Insomnia Last Admin: 05/01/20 20:07 Dose: 3 mg Documented by: Naloxone HCl (Naloxone 0.4 Mg/Ml 1 Ml Vial) 0.2 mg IV Q2M PRN PRN Reason: Opioid Reversal Past medical history to include: Hypertension, back pain Social history: Daughter lives with her. No history of smoking or alcohol Family history: Reviewed, noncontributory to presentation Physical examination: VITAL SIGNS: 97.5, 60, 16, 122/74, 92% room air GENERAL: Sitting up in a chair a bit tired EYES: Pupils equal. Conjunctiva normal. HEENT: External appearance of nose and ears normal, oral cavity grossly normal. NECK: JVD unable to assess masses not palpable. HEART: Heart sounds irregular; no edema. LUNGS: Respiratory rate increased, minimal crackles ABDOMEN: Soft, nontender, liver spleen not palpable, no masses palpable. PSYCH: Alert and oriented x3; mood and affect normal. INVESTIGATIONS, reviewed in the clinical context: May 01: WBC 2.9 potassium 4.4 creatinine 1.61 d-dimer 1.81 CRP 54.5 Chest x-ray [April 30]: Basilar infiltrates April 30: WBC 3.4 hemoglobin 11.9 potassium 4 bun 52 creatinine 1.55 WBC 4.8 hemoglobin 13.4 platelets 362 sodium 129 bun 47 creatinine 1.65 Coronavirus [PCR] detected TSH 2.4 pro-BNP 2170 Troponin I less than 0.012 EKG tracing personally reviewed by me-atrial fibrillation with a rate of 128 Right foot [id number] for fracture Ultrasound venous Doppler right lower extremity: Negative for DVT Chest x-ray film personally reviewed by me-borderline cardiomegaly, bilateral infiltrates versus edema 2-D echocardiogram: Atrial fibrillation. EF 60-65%. Moderate concentric LVH Assessment and plan: -New onset of atrial fibrillation with a rapid ventricular rate. Patient star meryl IV Cardizem., IV heparin-discontinued. Started on eliquis. Heart rate better controlled. Because of bradycardia both Cardizem and beta [place] discontinued. -Acute congestive heart failure/pulmonary edema from underlying atrial fibrillation. Received IV Lasix. -Essential hypertension. Patient now on Lopressor. Hyzaar and oral Cardizem -IV heparin monitoring-now discontinued -Hypertensive heart disease -Acute hypoxic respiratory failure possibly combination of fluid overload and COVID 19. -Bradycardia and sinus pauses from patient being on Lopressor and Cardizem. Cardizem and Lopressor discontinued -COVID 19 pneumonia. Seen by pulmonary. Feel it's asymptomatic
[2020-05-02 07:53] LABS: Basophils % (A) 0 %; Eosinophils % (A) 0 %; HCT 41.2 % (34.0-46.0); HGB 13.7 gm/dL (11.4-16.0); Lymphocytes # (A) 0.5 k/uL (1.0-4.8); Lymphocytes % (A) 5 %; MCH 29.1 pg (25.0-35.0); MCHC 33.2 g/dL (31.0-37.0); MCV 87.8 fL (80.0-100.0); Mean Platelet Volume 6.8; Monocytes # (A) 0.4 k/uL (0-1.0); Monocytes % (A) 5 %; Neutrophils # (A) 7.8 k/uL (1.3-7.7); Neutrophils % (A) 89 %; Platelet Count 370 k/uL (150-450); RBC 4.69 m/uL (3.80-5.40); RDW 12.4 % (11.5-15.5); WBC 8.7 k/uL (3.8-10.6)
[2020-05-02 08:09] LABS: Calcium 9.3 mg/dL (8.4-10.2); Magnesium 1.7 mg/dL (1.6-2.3); Potassium 4.6 mmol/L (3.5-5.1)
[2020-05-02] MEDS: APIXABAN 2.5 MG TABLET PO SCH ×2 (08:10→19:59)
--- NOTE | 2020-05-02 12:23 | P.PN ---
Subjective Progress Note Date: 05/02/20 CHIEF COMPLAINT: new onset A. fib HISTORY OF PRESENT ILLNESS: 04/29/2020 This is a 84-year-old female with a past medical history significant for hypertension. We have been asked to see the patient in consultation for new- onset atrial fibrillation. Patient initially presented to the hospital due to right foot pain. Patient apparently struck her foot on a bedpost a few days prior. Patient was found to be positive for coronavirus. Patient was found to be in A. fib with RVR in the emergency room. Patient has no prior history of atrial fibrillation. Patient was started on IV cardizem. She remains in atrial fibrillation with controlled ventricular rate. EKG reveals atrial fibrillation with RVR. left axis deviation. Chest xray cardiomegaly and chronic parenchymal changes with suggestion of new bilateral multifocal edema and/or infiltrates. right lower extremity Doppler: Negative for DVT VQ scan: Low probability for PE Laboratory data: WBC 4.6. Hemoglobin 14.0. Platelet count 355. Sodium 129. Potassium 4.4. BUN 47. Creatinine 1.65. Magnesium 1.7. Current home cardiac medications include Irbesartan-hctz 150-12.5mg daily 04/30/2020 Per nursing, patient had an episode yesterday where she was sitting beside the bed and became pale, started vomiting, and was unresponsive for about 30 seconds. Her blood pressure at that time was 64/44. Her Cardizem was held yesterday. Patient's blood pressure this morning was 103/55. She received her dose of Cardizem and metoprolol. Since administration, the patient became bradycardic with a heart rate in the 40s. She remains on IV heparin. Echocardiogram completed revealed ejection fraction 60-65% with mild tricuspid regurgitation. 05/01/2020 Patient remains in atrial fibrillation with controlled ventricular rate. Patient having pauses overnight and also this morning while she is awake. Pauses around 2 seconds. Patient's Cardizem was discontinued yesterday secondary to bradycardia. Her metoprolol dose was decreased as well. 05/02/2020 Patient remains in atrial fibrillation with controlled ventricular rate. Patient continues to have pauses however these are not longer than 3 seconds. Her Cardizem and metoprolol have been discontinued. PHYSICAL EXAM: Thorough physical exam not completed secondary to limited evaluation/examination and due to Covid19 ASSESSMENT: Acute Covid 19 New-onset atrial fibrillation with RVR Hypertension Right foot injury Acute kidney injury, unknown if CKD Asymptomatic bradycardia Sick sinus syndrome Hypotension, resolved PLAN: Continue to hold AV rajesh blocking agents Continue telemetry monitoring Continue Eliquis for anticoagulation Further recommendations pending patient's course Nurse practitioner note has been reviewed by physician. Signing provider agrees with the documented findings, assessment, and plan of care. Objective - Vital Signs Vital signs: Vital Signs Temp 97.4 F L 05/02/20 08:00 Pulse 83 05/02/20 08:00 Resp 16 05/02/20 08:00 BP 120/76 05/02/20 08:00 Pulse Ox 92 L 05/02/20 08:00 Intake & Output 05/01/20 05/02/20 05/02/20 18:59 06:59 18:59 Intake Total 1220 540 240 Output Total 650 300 Balance 1220 -110 -60 Weight 69.5 kg Intake: Oral 1220 540 240 Output: Urine 650 300 Other: Voiding Method Bedside Commode Bedside Commode Bedside Commode # Voids 2 - Labs CBC & Chem 7: 05/02/20 06:53 05/02/20 06:53 Labs: Abnormal Lab Results - Last 24 Hours (Table) 05/02/20 05/02/20 Range/Units 06:53 06:53 Neutrophils # 7.8 H (1.3-7.7) k/uL Lymphocytes # 0.5 L (1.0-4.8) k/uL Sodium 133 L (137-145) mmol/L Chloride 97 L (98-107) mmol/L BUN 54 H (7-17) mg/dL Creatinine 1.32 H (0.52-1.04) mg/dL Glucose 138 H (74-99) mg/dL
[2020-05-02] MEDS: ASCORBIC ACID 500 MG TAB PO SCH (12:28)
[2020-05-02] MEDS: ZINC SULFATE 220 MG CAP PO SCH (12:28)
[2020-05-02] MEDS: CHOLECALCIFEROL 25 MCG (1000 IU) TABLET PO SCH (12:29)
[2020-05-02 12:41] LABS: Glucose,Whole Blood 143 mg/dL (75-99)
--- NOTE | 2020-05-02 13:06 | P.PN ---
Progress Note - Text Progress Note Date: 05/02/20 A- team: Indication: Sycope possible loss of pulse Background: Patient admitted with COVID-19 and A fib with RVR has been on room air. Was up to the bedside commode to go to the bathroom. She became unresponsive. Nursing aides were concerned that they did not feel pulse. CODE BLUE was activated. However patient was determined to have a pulse (Seen to find patient awake. Blood pressure was noted to be approximately 150/80. Pulse was 88 she was determined to be in A. fib. Pulse ox was low 80s and oxygen had been applied. Patient seen and examined at bedside. She denies any chest pain, lightheadedness, dizziness, or shortness of breath. She does not remember the syncopal episode. She currently has no complaints. Vital signs reviewed General: ill appearing, mild distress, appears younger than stated age Derm: warm, dry Head: atraumatic, normocephalic, symmetric Eyes: EOMI, no lid lag, anicteric sclera Mouth: no lip lesion, mucus membranes dry Cardiovascular: S1S2 irreg, no murmur, positive posterior tibial pulse bilateral, Lungs: Course bs bilateral, no rhonchi, no rales , no accessory muscle use, no converstaional dyspnea Ext: no gross muscle atrophy, no edema, no contractures Neuro: CN II-XI grossly intact, Moving bilateral upper extremities equal Psych: Awake, oriented to situation Assessment/Plan: Chart review: Patient was admitted for Covid 19 on 04/29/20 was discovered to have new onset A. fib with rapid ventricular response was initially started on a Cardizem drip and IV heparin. She received 1 dose of Lasix in the ER secondary to congestive heart failure. On 04/29 she also had an episode where she was si tting on the bedside commode and became pale and started vomiting and was unresponsive for 30 seconds. At that point in time she was found have a blood pressure 66/44 and was bradycardic. Her Cardizem drip was discontinued. He continued to have some pauses and metoprolol was decreased. Cardiology has been following. On 05/02 she was taken off of metoprolol and Cardizem. SYNCOPE and acute hypoxic respiratory failure - check ekg- reviewed no signs of ischemia, a fib with VR at 95 - Leave on O2, start continuous pulse ox - check ortho static vital signs - Labs reviewed form 05/02/20 in AM and MG 1.7 and renal function was improved Notified: Irena Bolton [employer] with cardio and Dr. Randhawa. D/W nursing and will keep patient on 3S. A Total of 25 minutes of time was spent on the complex care of this patient
--- NOTE | 2020-05-02 13:35 | P.PN ---
Subjective Progress Note Date: 05/02/20 Principal diagnosis: Right foot pain secondary to trauma, new onset A. fib, CoVID 19 infection This is a pleasant 84-year-old female patient with history of hypertension, back pain. She presented to the emergency room on 04/28/2020 after developing right foot pain for 3 days. She had struck the bedpost with her foot and it has since become more painful swollen black and blue. She denied any shortness of breath, cough congestion. No chest pain. She was noted to have elevated heart rate and was found to be in atrial fibrillation with rapid ventricular response. New ons et. She was admitted for the same. Doppler of the right lower extremity negative for DVT. She also tested positive for CoVID 19 infection. No nausea, vomiting diarrhea. No fever, chills or night sweats. VQ scan revealed low probability of pulmonary embolism. Echocardiogram revealed normal left ventricular systolic function with ejection fraction 60-65%. Her follow-up chest x-ray yesterday revealed worsening bilateral lung infiltrates greater at the bases. She did receive 60 mg of IV Lasix on 04/30/2020. She is seen today in consultation on the selective care unit. Currently resting quite comfortably in bed. Awake and alert in no acute distress. Maintaining O2 saturations in the low 90s on room air. She's been afebrile. Hemodynamically stable. Heart rate controlled. White count 2.9. Hemoglobin 14.1. Lymphocytes 0.4. D-dimer 1.81. Sodium 132. Potassium 4.4. Creatinine 1.61. C-reactive protein 54.5. ProBNP 2930. This morning she had been having sinus pauses up to 2 seconds. Metoprolol has been discontinued. She is anticoagulated with Eliquis. Patient is seen today 05/02/2020 in follow-up on the selective care unit. She is currently resting comfortably in bed. Awake and alert in no acute distress. Maintaining O2 saturations in the low 90s on room air. No worsening shortness of breath, cough or congestion. Her right foot is less painful. Denies any chest pain, palpitations, lightheadedness or dizziness. White count 8.7. Hemoglobin 13.7. Lymphocytes 0.5. Sodium 13. Potassium 4.6. Creatinine 1.32. She is anticoagulated with Eliquis, remains on vitamin supplements. Objective - Vital Signs Vital signs: Vital Signs Temp 98.2 F 05/02/20 12:00 Pulse 91 05/02/20 12:00 Resp 18 05/02/20 12:00 BP 136/73 05/02/20 12:00 Pulse Ox 90 L 05/02/20 12:00 Intake & Output 05/01/20 05/02/20 05/02/20 18:59 06:59 18:59 Intake Total 1220 540 240 Output Total 650 300 Balance 1220 -110 -60 Weight 69.5 kg Intake: Oral 1220 540 240 Output: Urine 650 300 Other: Voiding Method Bedside Commode Bedside Commode Bedside Commode # Voids 2 - Exam GENERAL EXAM: Alert, active, pleasant 84-year-old female patient on room air, comfortable in no apparent distress. HEAD: Normocephalic. EYES: Normal reaction of pupils, equal size. NOSE: Clear with pink turbinates. THROAT: No erythema or exudates. NECK: No masses, no JVD. CHEST: No chest wall deformity. LUNGS: Equal air entry with no crackles, wheeze, rhonchi or dullness. CVS: S1 and S2 normal with no audible murmur, irregular rhythm. ABDOMEN: No hepatosplenomegaly, normal bowel sounds, no guarding or rigidity. SPINE: No scoliosis or deformity SKIN: No rashes CENTRAL NERVOUS SYSTEM: No focal deficits, tone is normal in all 4 extremities. EXTREMITIES: There is no peripheral edema. No clubbing, no cyanosis. Peripheral pulses are intact. - Labs CBC & Chem 7: 05/02/20 06:53 05/02/20 06:53 Labs: Abnormal Lab Results - Last 24 Hours (Table) 05/02/20 05/02/20 05/02/20 Range/Units 06:53 06:53 12:40 Neutrophils # 7.8 H (1.3-7.7) k/uL Lymphocytes # 0.5 L (1.0-4.8) k/uL Sodium 133 L (137-145) mmol/L Chloride 97 L (98-107) mmol/L BUN 54 H (7-17) mg/dL Creatinine 1.32 H (0.52-1.04) mg/dL Glucose 138 H (74-99) mg/dL POC Glucose (mg/dL) 143 H (75-99) mg/dL Assessment and Plan Assessment: 1 Right foot pain secondary to trauma, no fractures identified 2 New onset atrial fibrillation, anticoagulated with Eliquis 3 Covid 19 infection 4 Acute renal failure 5 Hyponatremia 6 History of hypertension Plan: The patient was seen and evaluated by Dr. Almazan Asymptomatic Covid 19 infection Anticoagulated with Eliquis Home once cleared by cardiology I, the cosigning physician, performed a history & physical examination of the patient. Lungs sounds with crackles in the bilateral posterior bases Maintaining good O2 saturations in the 90s on room air. I discussed the assessment and plan of care with my nurse practitioner, Tianna Torre. I attest to the above note as dictated by her.
--- NOTE | 2020-05-02 18:53 | P.PN ---
Progress Note - Text Progress Note Date: 05/02/20 Chief Complaint: Dizzy History of presenting complaint: This is a very pleasant 84-year-old patient of Dr. Sands. She presented to the ER after she had been complaining of right foot pain for 3 days. She told her she got out of bed on Sunday and struck her right foot on a bedpost. High right toe pink especially was black and blue and she had some painful sensation in the right calf. She felt a bit dizzy yesterday. No chest pain or palpitations. Decided to present to the ER. She is found to be in atrial fibrillation. With elevated ventricular rate. She was started on a Cardizem drip. Admitted with uncontrolled atrial flutter fibrillation. Acute CHF exacerbation. Received IV Lasix. Patient started having sinus pauses. Beta [place] discontinued. Also found to have asymptomatic COVID 19 pneumonitis Today-had an episode of what appeared to be vasovagal. Was not bradycardic during that episode. Heart has been up to the 140s. Pulse ox did go down to the 80s without oxygen. Review of systems: Was done for constitutional, cardiovascular, GI, pulmonary. relevant finding as above Active Medications Apixaban (Apixaban 2.5 Mg Tablet) 2.5 mg PO BID [facility] Last Admin: 05/02/20 08:10 Dose: 2.5 mg Documented by: Ascorbic Acid (Ascorbic Acid 500 Mg Tab) 1,000 mg PO DAILY [facility] Last Admin: 05/02/20 12:28 Dose: 1,000 mg Documented by: Cholecalciferol (Cholecalciferol 25 Mcg (1000 Iu) Tablet) 25 mcg PO DAILY [facility] Last Admin: 05/02/20 12:29 Dose: 25 mcg Documented by: Melatonin (Melatonin 3 Mg Tablet) 3 mg PO HS PRN PRN Reason: Insomnia Last Admin: 05/01/20 20:07 Dose: 3 mg Documented by: Naloxone HCl (Naloxone 0.4 Mg/Ml 1 Ml Vial) 0.2 mg IV Q2M PRN PRN Reason: Opioid Reversal Zinc Sulfate (Zinc Sulfate 220 Mg Cap) 220 mg PO DAILY [facility] Last Admin: 05/02/20 12:28 Dose: 220 mg Documented by: Past medical history to include: Hypertension, back pain Social history: Daughter lives with her. No history of smoking or alcohol Family history: Reviewed, noncontributory to presentation Physical examination: VITAL SIGNS: 98.2, 91, 18, 136/73, 90% on room air GENERAL: Reclining in bed, tired EYES: Pupils equal. Conjunctiva normal. HEENT: External appearance of nose and ears normal, oral cavity grossly normal. NECK: JVD unable to assess masses not palpable. HEART: Heart sounds irregular; no edema. LUNGS: Respiratory rate increased, minimal crackles ABDOMEN: Soft, nontender, liver spleen not palpable, no masses palpable. PSYCH: Alert and oriented x3; mood and affect normal. INVESTIGATIONS, reviewed in the clinical context: May 02: WBC 8.7 hemoglobin 13.7 potassium 4.6 bun 54 creatinine 1.3 to May 01: WBC 2.9 potassium 4.4 creatinine 1.61 d-dimer 1.81 CRP 54.5 Chest x-ray [April 30]: Basilar infiltrates April 30: WBC 3.4 hemoglobin 11.9 potassium 4 bun 52 creatinine 1.55 WBC 4.8 hemoglobin 13.4 platelets 362 sodium 129 bun 47 creatinine 1.65 Coronavirus [PCR] detected TSH 2.4 pro-BNP 2170 Troponin I less than 0.012 EKG tracing personally reviewed by me-atrial fibrillation with a rate of 128 Right foot [id number]-[id number] for fracture Ultrasound venous Doppler right lower extremity: Negative for DVT Chest x-ray film personally reviewed by me-borderline cardiomegaly, bilateral infiltrates versus edema 2-D echocardiogram: Atrial fibrillation. EF 60-65%. Moderate concentric LVH Assessment and plan: -New onset of atrial fibrillation with a rapid ventricular rate. Patient started IV Cardizem., IV heparin-discontinued. Started on eliquis. Heart rate better controlled. Because of bradycardia both Cardizem and beta [place] discontinued. Still having sinus pauses and increased heart rate. Pacemaker to be considered. -Acute congestive heart failure/pulmonary edema from underlying atrial fibrillation. Received IV Lasix. Better -Essential hypertension. Taken off antihypertensives because of bradycardia. -IV heparin monitoring-now discontinued -Hypertensive heart disease -Acute hypoxic respiratory failure possibly combination of fluid overload and COVID 19. -Bradycardia and sinus pauses from patient being on Lopressor and Cardizem. Cardizem and Lopressor discontinued -COVID 19 pneumonia. Seen by pulmonary. Feel it's asymptomatic Care was discussed with the patient. Await further input from oncology. Should consider pacemaker is a bradycardia and heart rate up to 140s.
[2020-05-03 07:42] LABS: Calcium 8.9 mg/dL (8.4-10.2); Magnesium 1.9 mg/dL (1.6-2.3)
--- NOTE | 2020-05-03 09:17 | P.PN ---
Subjective Progress Note Date: 05/03/20 Right foot pain secondary to trauma, new onset A. fib, CoVID 19 infection This is a pleasant 84-year-old female patient with history of hypertension, back pain. She presented to the emergency room on 04/28/2020 after developing right foot pain for 3 days. She had struck the bedpost with her foot and it has since become more painful swollen black and blue. She denied any shortness of breath, cough congestion. No chest pain. She was noted to have elevated heart rate and was found to be in atrial fibrillation with rapid ventricular response. New onset. She was admitted for the same. Doppler of the right lower extremity negative for DVT. She also tested positive for CoVID 19 infection. No nausea, vomiting diarrhea. No fever, chills or night sweats. VQ scan revealed low probability of pulmonary embolism. Echocardiogram revealed normal left ventricular systolic function with ejection fraction 60-65%. Her follow-up chest x-ray yesterday revealed worsening bilateral lung infiltrates greater at the bases. She did receive 60 mg of IV Lasix on 04/30/2020. She is seen today in consultation on the selective care unit. Currently resting quite comfortably in bed. Awake and alert in no acute distress. Maintaining O2 saturations in the low 90s on room air. She's been afebrile. Hemodynamically stable. Heart rate controlled. White count 2.9. Hemoglobin 14.1. Lymphocytes 0.4. D-dimer 1.81. Sodium 132. Potassium 4.4. Creatinine 1.61. C-reactive protein 54.5. ProBNP 2930. This morning she had been having sinus pauses up to 2 seconds. Metoprolol has been discontinued. She is anticoagulated with Eliquis. Patient is seen today 05/03/2020 in follow-up on the selective care unit. She is currently resting comfortably in bed. Awake and alert in no acute distress. Maintaining O2 saturations in the low 90s on room air. No worsening shortness of breath, cough or congestion. Her right foot is less painful. Denies any chest pain, palpitations, lightheadedness or dizziness. White count 8.7. Hemoglobin 13.7. Lymphocytes 0.5. Sodium 13. Potassium 4.6. Creatinine 1.32. She is anticoagulated with Eliquis, remains on vitamin supplements. The patient was brought down to 2 L about 2 by nasal cannula with a pulse ox of 96%. The labs from today showing no major joint abnormalities. Creatinine is improving is down to 1.2. Inflammatory markers were not repeated. The d-dimer was 1.8 at the time of admission. She is on multivitamins. The patient did have a syncopal episode yesterday at around noontime. Currently her cardiac rhythm is atrial fibrillation and the patient is on anticoagulation Objective - Vital Signs Vital signs: Vital Signs Temp 97.7 F 05/03/20 04:31 Pulse 95 05/03/20 04:31 Resp 16 05/03/20 04:31 BP 106/52 05/03/20 04:31 Pulse Ox 96 05/03/20 04:31 Intake & Output 05/02/20 05/03/20 05/03/20 18:59 06:59 18:59 Intake Total 240 480 125 Output Total 700 200 Balance -460 480 -75 Intake: Oral 240 480 125 Output: Urine 700 200 Other: Voiding Method Bedside Commode Bedside Commode # Voids 300 1 - Exam GENERAL EXAM: Alert, active, pleasant 84-year-old female patient on 2 liters of oxygen, comfortable in no apparent distress. HEAD: Normocephalic. EYES: Normal reaction of pupils, equal size. NOSE: Clear with pink turbinates. THROAT: No erythema or exudates. NECK: No masses, no JVD. CHEST: No chest wall deformity. LUNGS: Equal air entry with no crackles, wheeze, rhonchi or dullness. CVS: S1 and S2 normal with no audible murmur, irregular rhythm. ABDOMEN: No hepatosplenomegaly, normal bowel sounds, no guarding or rigidity. SPINE: No scoliosis or deformity SKIN: No rashes CENTRAL NERVOUS SYSTEM: No focal deficits, tone is normal in all 4 extremities. EXTREMITIES: There is no peripheral edema. No clubbing, no cyanosis. Peripheral pulses are intact. - Labs CBC & Chem 7: 05/02/20 06:53 05/03/20 06:25 Labs: Abnormal Lab Results - Last 24 Hours (Table) 05/02/20 05/03/20 Range/Units 12:40 06:25 Sodium 135 L (137-145) mmol/L BUN 43 H (7-17) mg/dL Creatinine 1.20 H (0.52-1.04) mg/dL Glucose 112 H (74-99) mg/dL POC Glucose (mg/dL) 143 H (75-99) mg/dL Assessment and Plan Plan: 1 Right foot pain secondary to trauma, no fractures identified 2 New onset atrial fibrillation, anticoagulated with Eliquis and the patient was taken off the beta blockers because of sinus part is. The patient's rate is under good control for now. No significant hemodynamic instability. 3 Covid 19 infection/pneumonia, currently on 2 L of oxygen by nasal cannula with a pulse ox of 94%, the patient has crackles at lung bases bilaterally and the patient be started on Decadron. 4 Acute renal failure, improved and the patient's creatinine is back to its baseline at 1.2, note that the patient also has history of chronic kidney disease stage III 5 Hyponatremia, improved his sodium level has also normalized 6 History of hypertension 7 chronic back pain 8 normal left ventricular function with an ejection fraction of 665% 9 low probability VQ scan Plan: The patient will placed on Decadron 6 mg by mouth daily for the next 10 days The patient out of the severe. The patient has significant amount of crackling in the lung bases and the patient is hypoxic requiring somewhere between 24 L of oxygen by nasal cannula. currently on oxygen at 2 L per minute nasal cannula, and FiO2 will be titrated to maintain a saturation above 90%. Anticoagulated with Eliquis chest x-ray in a.m. Repeat inflammatory markers in A.[facility]. Cardiology regarding the atrial fibrillation and episodes of syncope
[2020-05-03] MEDS: dexAMETHasone 2 MG TAB PO SCH (09:29)
[2020-05-03] MEDS: APIXABAN 2.5 MG TABLET PO SCH ×2 (09:29→19:53)
[2020-05-03] MEDS: ZINC SULFATE 220 MG CAP PO SCH (09:29)
[2020-05-03] MEDS: CHOLECALCIFEROL 25 MCG (1000 IU) TABLET PO SCH (09:29)
[2020-05-03] MEDS: ASCORBIC ACID 500 MG TAB PO SCH (09:29)
[2020-05-03] MEDS ORDERED: REMDESIVIR 200 MG in SODIUM CHLORIDE 0.9% 250 ML IVPB ONE (10:00)
--- NOTE | 2020-05-03 11:05 | P.PN ---
Subjective Progress Note Date: 05/03/20 CHIEF COMPLAINT: new onset A. fib HISTORY OF PRESENT ILLNESS: 04/29/2020 This is a 84-year-old female with a past medical history significant for hypertension. We have been asked to see the patient in consultation for new- onset atrial fibrillation. Patient initially presented to the hospital due to right foot pain. Patient apparently struck her foot on a bedpost a few days prior. Patient was found to be positive for coronavirus. Patient was found to be in A. fib with RVR in the emergency room. Patient has no prior history of atrial fibrillation. Patient was started on IV cardizem. She remains in atrial fibrillation with controlled ventricular rate. EKG reveals atrial fibrillation with RVR. left axis deviation. Chest xray cardiomegaly and chronic parenchymal changes with suggestion of new bilateral multifocal edema and/or infiltrates. right lower extremity Doppler: Negative for DVT VQ scan: Low probability for PE Laboratory data: WBC 4.6. Hemoglobin 14.0. Platelet count 355. Sodium 129. Potassium 4.4. BUN 47. Creatinine 1.65. Magnesium 1.7. Current home cardiac medications include Irbesartan-hctz 150-12.5mg daily 04/30/2020 Per nursing, patient had an episode yesterday where she was sitting beside the bed and became pale, started vomiting, and was unresponsive for about 30 seconds. Her blood pressure at that time was 64/44. Her Cardizem was held yesterday. Patient's blood pressure this morning was 103/55. She received her dose of Cardizem and metoprolol. Since administration, the patient became bradycardic with a heart rate in the 40s. She remains on IV heparin. Echocardiogram completed revealed ejection fraction 60-65% with mild tricuspid regurgitation. 05/01/2020 Patient remains in atrial fibrillation with controlled ventricular rate. Patient having pauses overnight and also this morning while she is awake. Pauses around 2 seconds. Patient's Cardizem was discontinued yesterday secondary to bradycardia. Her metoprolol dose was decreased as well. 05/02/2020 Patient remains in atrial fibrillation with controlled ventricular rate. Patient continues to have pauses however these are not longer than 3 seconds. Her Cardizem and metoprolol have been discontinued. 05/02/2020 Patient remains in atrial fibrillation with controlled ventricular rate. Patient continues to have pauses however these are not longer than 3 seconds. She is not on any AV rajesh blocking agents. She remains on Eliquis for anticoagulation. PHYSICAL EXAM: Thorough physical exam not completed secondary to limited evaluation/examination and due to Covid19 ASSESSMENT: Acute Covid 19 New-onset atrial fibrillation with RVR Hypertension Right foot injury Acute kidney injury, unknown if CKD Asymptomatic bradycardia Sick sinus syndrome Hypotension, resolved PLAN: Continue to hold AV rajesh blocking agents Continue telemetry monitoring Continue Eliquis for anticoagulation Further recommendations pending patient's course Nurse practitioner note has been reviewed by physician. Signing provider agrees with the documented findings, assessment, and plan of care. Objective - Vital Signs Vital signs: Vital Signs Temp 97.7 F 05/03/20 04:31 Pulse 95 05/03/20 04:31 Resp 16 05/03/20 04:31 BP 106/52 05/03/20 04:31 Pulse Ox 96 05/03/20 04:31 Intake & Output 05/02/20 05/03/20 05/03/20 18:59 06:59 18:59 Intake Total 240 480 125 Output Total 700 200 Balance -460 480 -75 Intake: Oral 240 480 125 Output: Urine 700 200 Other: Voiding Method Bedside Commode Bedside Commode # Voids 300 1 - Labs CBC & Chem 7: 05/02/20 06:53 05/03/20 06:25 Labs: Abnormal Lab Results - Last 24 Hours (Table) 05/02/20 05/03/20 Range/Units 12:40 06:25 Sodium 135 L (137-145) mmol/L BUN 43 H (7-17) mg/dL Creatinine 1.20 H (0.52-1.04) mg/dL Glucose 112 H (74-99) mg/dL POC Glucose (mg/dL) 143 H (75-99) mg/dL
--- NOTE | 2020-05-03 21:53 | P.PN ---
Progress Note - Text Progress Note Date: 05/03/20 Chief Complaint: Dizzy History of presenting complaint: This is a very pleasant 84-year-old patient of Dr. Sands. She presented to the ER after she had been complaining of right foot pain for 3 days. She told her she got out of bed on Sunday and struck her right foot on a bedpost. High right toe pink especially was black and blue and she had some painful sensation in the right calf. She felt a bit dizzy yesterday. No chest pain or palpitations. Decided to present to the ER. She is found to be in atrial fibrillation. With elevated ventricular rate. She was started on a Cardizem drip. Admitted with uncontrolled atrial flutter fibrillation. Acute CHF exacerbation. Received IV Lasix. Patient started having sinus pauses. Beta [place] discontinued. Also found to have COVID 19 pneumonitis Today-patient continues to have pauses. Off beta blockers. A bit tired. On oxygen. Seen by Dr. Patel from pulmonary. He started the patient on dexamethasone and Remdesivir. Oral intake about 25% Review of systems: Was done for constitutional, cardiovascular, GI, pulmonary. relevant finding as above Active Medications Apixaban (Apixaban 2.5 Mg Tablet) 2.5 mg PO BID [facility] Last Admin: 05/03/20 19:53 Dose: 2.5 mg Documented by: Ascorbic Acid (Ascorbic Acid 500 Mg Tab) 1,000 mg PO DAILY [facility] Last Admin: 05/03/20 09:29 Dose: 1,000 mg Documented by: Cholecalciferol (Cholecalciferol 25 Mcg (1000 Iu) Tablet) 25 mcg PO DAILY [facility] Last Admin: 05/03/20 09:29 Dose: 25 mcg Documented by: Dexamethasone (Dexamethasone 2 Mg Tab) 6 mg PO DAILY [facility] Last Admin: 05/03/20 09:29 Dose: 6 mg Documented by: Remdesivir 100 mg/ Sodium (Chloride) 250 mls @ 250 mls/hr IVPB DAILY@1000 [facility] Stop: 05/07/20 10:59 Melatonin (Melatonin 3 Mg Tablet) 3 mg PO HS PRN PRN Reason: Insomnia Last Admin: 05/01/20 20:07 Dose: 3 mg Documented by: Naloxone HCl (Naloxone 0.4 Mg/Ml 1 Ml Vial) 0.2 mg IV Q2M PRN PRN Reason: Opioid Reversal Zinc Sulfate (Zinc Sulfate 220 Mg Cap) 220 mg PO DAILY [facility] Last Admin: 05/03/20 09:29 Dose: 220 mg Documented by: Past medical history to include: Hypertension, back pain Social history: Daughter lives with her. No history of smoking or alcohol Family history: Reviewed, noncontributory to presentation Physical examination: VITAL SIGNS: 98.6, 106, 18, 1 23 x 67, 94% on 4 L GENERAL: Reclining in chair, awake EYES: Pupils equal. Conjunctiva normal. HEENT: External appearance of nose and ears normal, oral cavity grossly normal. NECK: JVD unable to assess masses not palpable. HEART: Heart sounds irregular; no edema. LUNGS: Respiratory rate increased, basal crackles ABDOMEN: Soft, nontender, liver spleen not palpable, no masses palpable. PSYCH: Alert and oriented x3; mood and affect normal. INVESTIGATIONS, reviewed in the clinical context: May 03: Potassium 4 creatinine 1.2 May 02: WBC 8.7 hemoglobin 13.7 potassium 4.6 bun 54 creatinine 1.3 to May 01: WBC 2.9 potassium 4.4 creatinine 1.61 d-dimer 1.81 CRP 54.5 Chest x-ray [April 30]: Basilar infiltrates April 30: WBC 3.4 hemoglobin 11.9 potassium 4 bun 52 creatinine 1.55 WBC 4.8 hemoglobin 13.4 platelets 362 sodium 129 bun 47 creatinine 1.65 Coronavirus [PCR] detected TSH 2.4 pro-BNP 2170 Troponin I less than 0.012 EKG tracing personally reviewed by me-atrial fibrillation with a rate of 128 Right foot [id number] for fracture Ultrasound venous Doppler right lower extremity: Negative for DVT Chest x-ray film personally reviewed by me-borderline cardiomegaly, bilateral infiltrates versus edema 2-D echocardiogram: Atrial fibrillation. EF 60-65%. Moderate concentric LVH Assessment and plan: -New onset of atrial fibrillation with a rapid ventricular rate. Patient started IV Cardizem., IV heparin-discontinued. Started on eliquis. Heart rate better controlled. Because of bradycardia both Cardizem and beta [place] discontinued. Still having sinus pauses and increased heart rate. Pacemaker to be considered. -Acute congestive heart failure/pulmonary edema from underlying atrial f ibrillation. Received IV Lasix. Better -Essential hypertension. Taken off antihypertensives because of bradycardia. -IV heparin monitoring-now discontinued -Hypertensive heart disease -Acute hypoxic respiratory failure possibly combination of fluid overload and COVID 19. -Bradycardia and sinus pauses from patient being on Lopressor and Cardizem. Cardizem and Lopressor discontinued -COVID 19 pneumonia. Initially seen by Dr. Almazan. Found to be asymptomatic. Further reviewed by Dr. Patel today. Has started the patient on IV Remdesivir and dexamethasone. Had a lengthy talk with the patient explaining why she still in the hospital. Not safer to go home. Also called the patient's son Ed at [phone]. He had gone to bed. His took patient's clinical information to pass it on. Total time spent today about 45 minutes with over 25 minutes of discussion
--- NOTE | 2020-05-04 07:34 | XR ---
EXAMINATION TYPE: XR chest 1V portable DATE OF EXAM: 05/04/2020 CLINICAL HISTORY: Difficulty breathing and covid progress study. TECHNIQUE: Single AP portable upright view of the chest is obtained. COMPARISON: Chest x-ray from 4 days earlier FINDINGS: Stable cardiomegaly with atherosclerotic thoracic aorta. Background chronic parenchymal ch anges with multifocal increased opacities with relative sparing of the left upper lung similar to mos t recent x-ray. No pleural effusion or pneumothorax seen. Osseous structures remain demineralized. IMPRESSION: Bilateral multifocal opacities consistent with covid-19 infection, no significant change from most recent x-ray.
[2020-05-04 08:13] LABS: C Reactive Protein 186.6 mg/L (<10.0)
[2020-05-04] MEDS: REMDESIVIR 100 MG in SODIUM CHLORIDE 0.9% 250 ML IVPB SCH (08:58)
[2020-05-04] MEDS: APIXABAN 2.5 MG TABLET PO SCH ×2 (08:58→20:36)
[2020-05-04] MEDS: CHOLECALCIFEROL 25 MCG (1000 IU) TABLET PO SCH (08:58)
[2020-05-04] MEDS: ZINC SULFATE 220 MG CAP PO SCH (08:58)
[2020-05-04] MEDS: dexAMETHasone 2 MG TAB PO SCH (08:58)
[2020-05-04] MEDS: ASCORBIC ACID 500 MG TAB PO SCH (08:58)
--- NOTE | 2020-05-04 10:18 | P.PN ---
Subjective Progress Note Date: 05/04/20 This is a pleasant 84-year-old female patient with history of hypertension, back pain. She presented to the emergency room on 04/28/2020 after developing right foot pain for 3 days. She had struck the bedpost with her foot and it has since become more painful swollen black and blue. She denied any shortness of breath, cough congestion. No chest pain. She was noted to have elevated heart rate and was found to be in atrial fibrillation with rapid ventricular response. New onset. She was admitted for the same. Doppler of the right lower extremity negative for DVT. She also tested positive for CoVID 19 infection. No nausea, vomiting diarrhea. No fever, chills or night sweats. VQ scan revealed low probability of pulmonary embolism. Echocardiogram revealed normal left ventricular systolic function with ejection fraction 60-65%. Her follow-up chest x-ray yesterday revealed worsening bilateral lung infiltrates greater at the bases. She did receive 60 mg of IV Lasix on 04/30/2020. She is seen today in consultation on the selective care unit. Currently resting quite comfortably in bed. Awake and alert in no acute distress. Maintaining O2 saturations in the low 90s on room air. She's been afebrile. Hemodynamically stable. Heart rate controlled. White count 2.9. Hemoglobin 14.1. Lymphocytes 0.4. D-dimer 1.81. Sodium 132. Potassium 4.4. Creatinine 1.61. C-reactive protein 54.5. ProBNP 2930. This morning she had been having sinus pauses up to 2 seconds. Metoprolol has been discontinued. She is anticoagulated with Eliquis. Patient is seen today 05/03/2020 in follow-up on the selective care unit. She is currently resting comfortably in bed. Awake and alert in no acute distress. Maintaining O2 saturations in the low 90s on room air. No worsening shortness of breath, cough or congestion. Her right foot is less painful. Denies any chest pain, palpitations, lightheadedness or dizziness. White count 8.7. Hemoglobin 13.7. Lymphocytes 0.5. Sodium 13. Potassium 4.6. Creatinine 1.32. She is anticoagulated with Eliquis, remains on vitamin supplements. The patient was brought down to 2 L about 2 by nasal cannula with a pulse ox of 96%. The labs from today showing no major joint abnormalities. Creatinine is improving is down to 1.2. Inflammatory markers were not repeated. The d-dimer was 1.8 at the time of admission. She is on multivitamins. The patient did have a syncopal episode yesterday at around noontime. Currently her cardiac rh ythm is atrial fibrillation and the patient is on anticoagulation 05/04/2020, the patient remains on Decadron and REM. Today she is taking day #2 of REM. The patient is doing essentially the same as yesterday. LDH was 1014 and the CRP was 186. The d-dimer is also higher at 2.53. The patient is currently on oxygen at 4 L of the chest x-ray from today showing no major interval changes and there is some peripheral bilateral pulmonary infiltrates. There is multifocal opacities bilaterally without any significant change. The patient is on Eliquis 2.5 mg by mouth twice a day. No fever. No chills. No nausea. No vomiting. No altered mentation. Blood sugars of 112. Objective - Vital Signs Vital signs: Vital Signs Temp 97.7 F 05/04/20 08:00 Pulse 91 05/04/20 08:00 Resp 16 05/04/20 08:00 BP 122/63 05/04/20 08:00 Pulse Ox 95 05/04/20 08:00 Intake & Output 05/03/20 05/04/20 05/04/20 18:59 06:59 18:59 Intake Total 486 660 Output Total 200 400 Balance 286 260 Intake: Oral 486 660 Output: Urine 200 400 Other: Voiding Method Bedside Commode Bedside Commode Bedside Commode # Voids 1 1 # Bowel Movements 1 - Exam GENERAL EXAM: Alert, active, pleasant 84-year-old female patient on 4 liters of oxygen, comfortable in no apparent distress. HEAD: Normocephalic. EYES: Normal reaction of pupils, equal size. NOSE: Clear with pink turbinates. THROAT: No erythema or exudates. NECK: No masses, no JVD. CHEST: No chest wall deformity. LUNGS: Equal air entry with no crackles, wheeze, rhonchi or dullness. CVS: S1 and S2 normal with no audible murmur, irregular rhythm. ABDOMEN: No hepatosplenomegaly, normal bowel sounds, no guarding or rigidity. SPINE: No scoliosis or deformity SKIN: No rashes CENTRAL NERVOUS SYSTEM: No focal deficits, tone is normal in all 4 extremities. EXTREMITIES: There is no peripheral edema. No clubbing, no cyanosis. Peripheral pulses are intact. - Labs CBC & Chem 7: 05/02/20 06:53 05/03/20 06:25 Labs: Abnormal Lab Results - Last 24 Hours (Table) 05/04/20 05/04/20 Range/Units 06:15 06:15 D-Dimer 2.53 H (<0.60) mg/L FEU Lactate Dehydrogenase 1014 H (313-618) U/L C-Reactive Protein 186.6 H (<10.0) mg/L Assessment and Plan Plan: 1 Right foot pain secondary to trauma, no fractures identified 2 New onset atrial fibrillation, anticoagulated with Eliquis and the patient was taken off the beta blockers because of sinus pause. The patient's rate is under good control for now. No significant hemodynamic instability. The patient remains in atrial fibrillation for now. 3 Covid 19 infection/pneumonia, currently on 2 L of oxygen by nasal cannula with a pulse ox of 94%, the patient has crackles at lung bases bilaterally and the patient be started on Decadron. 4 Acute renal failure, improved and the patient's creatinine is back to its baseline at 1.2, note that the patient also has history of chronic kidney disease stage III 5 Hyponatremia, improved his sodium level has also normalized 6 History of hypertension 7 chronic back pain 8 normal left ventricular function with an ejection fraction of 665% 9 low probability VQ scan Plan: The chest x-ray findings are stable. Inflammatory markers are higher. Oxygenation is slightly worse and currently she is on 4 L. We'll continue the same treatment. The patient will placed on Decadron 6 mg by mouth daily for the next 10 days Continue Remdesivir, day 2 Anticoagulated with Eliquis chest x-ray in a.m. Repeat inflammatory markers in A.M. Cardiology regarding the atrial fibrillation
[2020-05-04 10:53] VITALS: BMI 29.9
--- NOTE | 2020-05-04 11:13 | P.PN ---
Subjective Progress Note Date: 05/04/20 CHIEF COMPLAINT: new onset A. fib HISTORY OF PRESENT ILLNESS: 04/29/2020 This is a 84-year-old female with a past medical history significant for hypertension. We have been asked to see the patient in consultation for new- onset atrial fibrillation. Patient initially presented to the hospital due to right foot pain. Patient apparently struck her foot on a bedpost a few days prior. Patient was found to be positive for coronavirus. Patient was found to be in A. fib with RVR in the emergency room. Patient has no prior history of atrial fibrillation. Patient was started on IV cardizem. She remains in atrial fibrillation with controlled ventricular rate. EKG reveals atrial fibrillation with RVR. left axis deviation. Chest xray cardiomegaly and chronic parenchymal changes with suggestion of new bilateral multifocal edema and/or infiltrates. right lower extremity Doppler: Negative for DVT VQ scan: Low probability for PE Laboratory data: WBC 4.6. Hemoglobin 14.0. Platelet count 355. Sodium 129. Potassium 4.4. BUN 47. Creatinine 1.65. Magnesium 1.7. Current home cardiac medications include Irbesartan-hctz 150-12.5mg daily 04/30/2020 Per nursing, patient had an episode yesterday where she was sitting beside the bed and became pale, started vomiting, and was unresponsive for about 30 seconds. Her blood pressure at that time was 64/44. Her Cardizem was held yesterday. Patient's blood pressure this morning was 103/55. She received her dose of Cardizem and metoprolol. Since administration, the patient became bradycardic with a heart rate in the 40s. She remains on IV heparin. Echocardiogram completed revealed ejection fraction 60-65% with mild tricuspid regurgitation. 05/01/2020 Patient remains in atrial fibrillation with controlled ventricular rate. Patient having pauses overnight and also this morning while she is awake. Pauses around 2 seconds. Patient's Cardizem was discontinued yesterday secondary to bradycardia. Her metoprolol dose was decreased as well. 05/02/2020 Patient remains in atrial fibrillation with controlled ventricular rate. Patient continues to have pauses however these are not longer than 3 seconds. Her Cardizem and metoprolol have been discontinued. 05/03/2020 Patient remains in atrial fibrillation with controlled ventricular rate. Patient continues to have pauses however these are not longer than 3 seconds. She is not on any AV rajesh blocking agents. She remains on Eliquis for anticoagulation. 05/04/2020 Patient remains in atrial fibrillation with controlled ventricular rate. She r emains on Eliquis for anticoagulation. Blood pressure stable. PHYSICAL EXAM: Thorough physical exam not completed secondary to limited evaluation/examination and due to Covid19 ASSESSMENT: Acute Covid 19 New-onset atrial fibrillation with RVR Hypertension Right foot injury Acute kidney injury, unknown if CKD Asymptomatic bradycardia Sick sinus syndrome Hypotension, resolved PLAN: Continue to hold AV rajesh blocking agents Continue telemetry monitoring Continue Eliquis for anticoagulation We will sign off. Please reconsult if needed Nurse practitioner note has been reviewed by physician. Signing provider agrees with the documented findings, assessment, and plan of care. Objective - Vital Signs Vital signs: Vital Signs Temp 97.7 F 05/04/20 08:00 Pulse 91 05/04/20 08:00 Resp 16 05/04/20 08:00 BP 122/63 05/04/20 08:00 Pulse Ox 95 05/04/20 08:00 Intake & Output 05/03/20 05/04/20 05/04/20 18:59 06:59 18:59 Intake Total 486 660 Output Total 200 400 Balance 286 260 Weight 69.5 kg Intake: Oral 486 660 Output: Urine 200 400 Other: Voiding Method Bedside Commode Bedside Commode Bedside Commode # Voids 1 1 # Bowel Movements 1 - Labs CBC & Chem 7: 05/02/20 06:53 05/03/20 06:25 Labs: Abnormal Lab Results - Last 24 Hours (Table) 05/04/20 05/04/20 Range/Units 06:15 06:15 D-Dimer 2.53 H (<0.60) mg/L FEU Lactate Dehydrogenase 1014 H (313-618) U/L C-Reactive Protein 186.6 H (<10.0) mg/L
[2020-05-04] MEDS: MELATONIN 3 MG TABLET PO PRN (22:15)
--- NOTE | 2020-05-05 00:51 | P.PN ---
Progress Note - Text Progress Note Date: 05/04/20 Chief Complaint: Dizzy History of presenting complaint: This is a very pleasant 84-year-old patient of Dr. Sands. She presented to the ER after she had been complaining of right foot pain for 3 days. She told her she got out of bed on Sunday and struck her right foot on a bedpost. High right toe pink especially was black and blue and she had some painful sensation in the right calf. She felt a bit dizzy yesterday. No chest pain or palpitations. Decided to present to the ER. She is found to be in atrial fibrillation. With elevated ventricular rate. She was started on a Cardizem drip. Admitted with uncontrolled atrial flutter fibrillation. Acute CHF exacerbation. Received IV Lasix. Patient started having sinus pauses. Beta [place] discontinued. Also found to have COVID 19 pneumonitis. Patient was started on Remdesivir by Dr. Patel. Today-sitting up in a chair. Eating some. Nasal cannula. Some shortness of breath. Review of systems: Was done for constitutional, cardiovascular, GI, pulmonary. relevant finding as above Active Medications Apixaban (Apixaban 2.5 Mg Tablet) 2.5 mg PO BID [facility] Last Admin: 05/04/20 20:36 Dose: 2.5 mg Documented by: Ascorbic Acid (Ascorbic Acid 500 Mg Tab) 1,000 mg PO DAILY [facility] Last Admin: 05/04/20 08:58 Dose: 1,000 mg Documented by: Cholecalciferol (Cholecalciferol 25 Mcg (1000 Iu) Tablet) 25 mcg PO DAILY [facility] Last Admin: 05/04/20 08:58 Dose: 25 mcg Documented by: Dexamethasone (Dexamethasone 2 Mg Tab) 6 mg PO DAILY [facility] Last Admin: 05/04/20 08:58 Dose: 6 mg Documented by: Remdesivir 100 mg/ Sodium (Chloride) 250 mls @ 250 mls/hr IVPB DAILY@1000 [facility] Stop: 05/07/20 10:59 Last Admin: 05/04/20 08:58 Dose: 250 mls/hr Documented by: Melatonin (Melatonin 3 Mg Tablet) 3 mg PO HS PRN PRN Reason: Insomnia Last Admin: 05/04/20 22:15 Dose: 3 mg Documented by: Naloxone HCl (Naloxone 0.4 Mg/Ml 1 Ml Vial) 0.2 mg IV Q2M PRN PRN Reason: Opioid Reversal Zinc Sulfate (Zinc Sulfate 220 Mg Cap) 220 mg PO DAILY [facility] Last Admin: 05/04/20 08:58 Dose: 220 mg Documented by: Past medical history to include: Hypertension, back pain Social history: Daughter lives with her. No history of smoking or alcohol Family history: Reviewed, noncontributory to presentation Physical examination: VITAL SIGNS: 97.7, 91, 16, 1 22 x 63, 95% on 4 L GENERAL: Sitting up in a chair, awake EYES: Pupils equal. Conjunctiva normal. HEENT: External appearance of nose and ears normal, oral cavity grossly normal. NECK: JVD unable to assess masses not palpable. HEART: Heart sounds irregular; no edema. LUNGS: Respiratory rate increased, basal crackles ABDOMEN: Soft, nontender, liver spleen not palpable, no masses palpable. PSYCH: Alert and oriented x3; mood and affect normal. INVESTIGATIONS, reviewed in the clinical context: May 04: D-dimer 2.53 CRP 186 May 03: Potassium 4 creatinine 1.2 May 02: WBC 8.7 hemoglobin 13.7 potassium 4.6 bun 54 creatinine 1.3 to May 01: WBC 2.9 potassium 4.4 creatinine 1.61 d-dimer 1.81 CRP 54.5 Chest x-ray [April 30]: Basilar infiltrates April 30: WBC 3.4 hemoglobin 11.9 potassium 4 bun 52 creatinine 1.55 WBC 4.8 hemoglobin 13.4 platelets 362 sodium 129 bun 47 creatinine 1.65 Coronavirus [PCR] detected TSH 2.4 pro-BNP 2170 Troponin I less than 0.012 EKG tracing personally reviewed by me-atrial fibrillation with a rate of 128 Right foot [id number] for fracture Ultrasound venous Doppler right lower extremity: Negative for DVT Chest x-ray film personally reviewed by me-borderline cardiomegaly, bilateral infiltrates versus edema 2-D echocardiogram: Atrial fibrillation. EF 60-65%. Moderate concentric LVH Assessment and plan: -New onset of atrial fibrillation with a rapid ventricular rate. Patient started IV Cardizem., IV heparin-discontinued. Started on eliquis. Heart rate better controlled. Because of bradycardia both Cardizem and beta [place] discontinued. Still having sinus pauses and increased heart rate. Better. -Acute congestive heart failure/pulmonary edema from underlying atrial fibrillation. Received IV Lasix. Better -Essential hypertension. Taken off antihypertensives because of bradycardia. -IV heparin monitoring-now discontinued -Hypertensive heart disease -Acute hypoxic respiratory failure possibly combination of fluid overload and COVID 19.-Slow to respond. On 4 L of nasal cannula. -Bradycardia and sinus pauses from patient being on Lopressor and Cardizem. Cardizem and Lopressor discontinued -COVID 19 pneumonia. Initially seen by Dr. Almazan. He felt it was asymptomatic. Further reviewed by Dr. Patel. Has started the patient on IV Remdesivir and dexamethasone. Slow to respond. With d-dimer and CRP increasing Discussed with the patient. Continue with steroids Remdesivir, eliquis.
--- NOTE | 2020-05-05 07:40 | XR ---
EXAMINATION TYPE: XR chest 1V portable DATE OF EXAM: 05/05/2020 HISTORY: Shortness of breath. COMPARISON: 05/04/2020 TECHNIQUE: Single view of the chest is submitted. FINDINGS: Demonstrated are scattered senescent parenchymal change. Scattered airspace infiltrates are greatest within the left lower lobe with slight interval progressi on suggested. Continued follow-up advised. The heart is stable. Hilar and mediastinal structures are within normal limits. Degenerative changes are seen of the dorsal spine. IMPRESSION: 1. Scattered airspace infiltrates are greatest within the left lower lobe with slight interval progr ession suggested. Continued follow-up advised.
[2020-05-05] MEDS: ASCORBIC ACID 500 MG TAB PO SCH (07:59)
[2020-05-05] MEDS: APIXABAN 2.5 MG TABLET PO SCH ×2 (07:59→19:49)
[2020-05-05] MEDS: dexAMETHasone 2 MG TAB PO SCH (07:59)
[2020-05-05] MEDS: ZINC SULFATE 220 MG CAP PO SCH (07:59)
[2020-05-05] MEDS: CHOLECALCIFEROL 25 MCG (1000 IU) TABLET PO SCH (07:59)
[2020-05-05 09:09] LABS: C Reactive Protein 87.5 mg/L (<10.0); Calcium 9.3 mg/dL (8.4-10.2); Potassium 4.5 mmol/L (3.5-5.1)
--- NOTE | 2020-05-05 09:44 | P.PN ---
Subjective Progress Note Date: 05/05/20 This is a pleasant 84-year-old female patient with history of hypertension, back pain. She presented to the emergency room on 04/28/2020 after developing right foot pain for 3 days. She had struck the bedpost with her foot and it has since become more painful swollen black and blue. She denied any shortness of breath, cough congestion. No chest pain. She was noted to have elevated heart rate and was found to be in atrial fibrillation with rapid ventricular response. New onset. She was admitted for the same. Doppler of the right lower extremity negative for DVT. She also tested positive for CoVID 19 infection. No nausea, vomiting diarrhea. No fever, chills or night sweats. VQ scan revealed low probability of pulmonary embolism. Echocardiogram revealed normal left ventricular systolic function with ejection fraction 60-65%. Her follow-up chest x-ray yesterday revealed worsening bilateral lung infiltrates greater at the bases. She did receive 60 mg of IV Lasix on 04/30/2020. She is seen today in consultation on the selective care unit. Currently resting quite comfortably in bed. Awake and alert in no acute distress. Maintaining O2 saturations in the low 90s on room air. She's been afebrile. Hemodynamically stable. Heart rate controlled. White count 2.9. Hemoglobin 14.1. Lymphocytes 0.4. D-dimer 1.81. Sodium 132. Potassium 4.4. Creatinine 1.61. C-reactive protein 54.5. ProBNP 2930. This morning she had been having sinus pauses up to 2 seconds. Metoprolol has been discontinued. She is anticoagulated with Eliquis. Patient is seen today 05/03/2020 in follow-up on the selective care unit. She is currently resting comfortably in bed. Awake and alert in no acute distress. Maintaining O2 saturations in the low 90s on room air. No worsening shortness of breath, cough or congestion. Her right foot is less painful. Denies any chest pain, palpitations, lightheadedness or dizziness. White count 8.7. Hemoglobin 13.7. Lymphocytes 0.5. Sodium 13. Potassium 4.6. Creatinine 1.32. She is anticoagulated with Eliquis, remains on vitamin supplements. The patient was brought down to 2 L about 2 by nasal cannula with a pulse ox of 96%. The labs from today showing no major joint abnormalities. Creatinine is improving is down to 1.2. Inflammatory markers were not repeated. The d-dimer was 1.8 at the time of admission. She is on multivitamins. The patient did have a syncopal episode yesterday at around noontime. Currently her cardiac rh ythm is atrial fibrillation and the patient is on anticoagulation 05/04/2020, the patient remains on Decadron and REM. Today she is taking day #2 of REM. The patient is doing essentially the same as yesterday. LDH was 1014 and the CRP was 186. The d-dimer is also higher at 2.53. The patient is currently on oxygen at 4 L of the chest x-ray from today showing no major interval changes and there is some peripheral bilateral pulmonary infiltrates. There is multifocal opacities bilaterally without any significant change. The patient is on Eliquis 2.5 mg by mouth twice a day. No fever. No chills. No nausea. No vomiting. No altered mentation. Blood sugars of 112. 10/05/2020 on seeing the patient for a follow-up. On today's evaluation the patient is still on Decadron and she is on day #3 for REM. She is gradually getting worse in her oxygenation. Her FiO2 is up to 91%. Her d-dimer is at 4 and her LDH level is 1195 comparable to yesterday and the CRP slightly lower at 87. The chest x-ray from today is showing patchy bilateral pulmonary infiltrates with some progression and development of new infiltrates in the right upper lobe and there is still infiltrates in lower lobes along the left cardiac border despite worsening in her oxygenation, the patient reports that her breathing is stable for now. She is tolerating her diet. No nausea. No vomiting. She has chronic atrial fibrillation. She has been on Eliquis 2.5 mg by mouth twice a day. Objective - Vital Signs Vital signs: Vital Signs Temp 97.5 F L 05/05/20 07:53 Pulse 79 05/05/20 07:53 Resp 18 05/05/20 07:53 BP 126/68 05/05/20 07:53 Pulse Ox 91 L 05/05/20 07:53 Intake & Output 05/04/20 05/05/20 05/05/20 18:59 06:59 18:59 Intake Total 250 10 0 Output Total 400 Balance 250 -390 0 Weight 69.5 kg Intake: IV 10 0.9 10 Intake, IV Titration 250 Amount Remdesivir 100 mg In 250 Sodium Chloride 0.9% 250 ml @ 250 mls/hr IVPB DAILY@1000 [facility] Rx#: [id number] Oral 0 Output: Urine 400 Other: Voiding Method Bedside Commode Bedside Commode # Bowel Movements 1 - Exam GENERAL EXAM: Alert, active, pleasant 84-year-old female patient on 8 liters of oxygen, comfortable in no apparent distress. HEAD: Normocephalic. EYES: Normal reaction of pupils, equal size. NOSE: Clear with pink turbinates. THROAT: No erythema or exudates. NECK: No masses, no JVD. CHEST: No chest wall deformity. LUNGS: Equal air entry with no crackles, wheeze, rhonchi or dullness. CVS: S1 and S2 normal with no audible murmur, irregular rhythm. ABDOMEN: No hepatosplenomegaly, normal bowel sounds, no guarding or rigidity. SPINE: No scoliosis or deformity SKIN: No rashes CENTRAL NERVOUS SYSTEM: No focal deficits, tone is normal in all 4 extremities. EXTREMITIES: There is no peripheral edema. No clubbing, no cyanosis. Peripheral pulses are intact. - Labs CBC & Chem 7: 05/02/20 06:53 05/05/20 07:38 Labs: Abnormal Lab Results - Last 24 Hours (Table) 05/05/20 05/05/20 Range/Units 07:38 07:38 D-Dimer 4.05 H (<0.60) mg/L FEU BUN 44 H (7-17) mg/dL Glucose 115 H (74-99) mg/dL Lactate Dehydrogenase 1195 H (313-618) U/L C-Reactive Protein 87.5 H (<10.0) mg/L Assessment and Plan Plan: 1 Covid 19 infection/pneumonia, and the patient's overall pulmonary status is progressively gotten worse and the patient is currently up to 8 L of oxygen by n elizabeth cannula and there is been some interval progression worsening of the bilateral pulmonary infiltrates noted earlier. The patient is on Decadron. The patient is on REM day #3. 2 New onset atrial fibrillation, anticoagulated with Eliquis and the patient was taken off the beta blockers because of sinus pause. The patient's rate is under good control for now. No significant hemodynamic instability. The patient remains in atrial fibrillation for now. 3 Right foot pain secondary to trauma, no fractures identified 4 Acute renal failure, improved and the patient's creatinine is back to its baseline at 1.2, note that the patient also has history of chronic kidney disease stage III 5 Hyponatremia, improved his sodium level has also normalized 6 History of hypertension 7 chronic back pain 8 normal left ventricular function with an ejection fraction of 665% 9 low probability VQ scan Plan: The chest x-ray is probably getting worse based on today's films.. Inflammatory markers are higher. Oxygenation is slightly worse and currently she is on 8 L. I am concerned that the patient exercises progressively getting worse. She came to us on 2 L and currently she is up to 8 L for now. We'll continue the same treatment. I will order units of convalescent plasma Continue Decadron 6 mg by mouth daily Continue Remdesivir, day 3 Anticoagulated with Eliquis Repeat chest x-ray in a.m. Repeat inflammatory markers in A.[facility]. Cardiology regarding the atrial fibrillation We'll continue to follow.
[2020-05-05] MEDS: REMDESIVIR 100 MG in SODIUM CHLORIDE 0.9% 250 ML IVPB SCH (11:14)
--- NOTE | 2020-05-05 22:51 | P.PN ---
Progress Note - Text Progress Note Date: 05/05/20 Chief Complaint: Dizzy History of presenting complaint: This is a very pleasant 84-year-old patient of Dr. Sands. She presented to the ER after she had been complaining of right foot pain for 3 days. She told her she got out of bed on Sunday and struck her right foot on a bedpost. High right toe pink especially was black and blue and she had some painful sensation in the right calf. She felt a bit dizzy yesterday. No chest pain or palpitations. Decided to present to the ER. She is found to be in atrial fibrillation. With elevated ventricular rate. She was started on a Cardizem drip. Admitted with uncontrolled atrial flutter fibrillation. Acute CHF exacerbation. Received IV Lasix. Patient started having sinus pauses. Beta [place] discontinued. Also found to have COVID 19 pneumonitis. Patient was started on Remdesivir by Dr. Patel. Also hypoxic. On oxygen. Today-bit tired. Oxygen increased. More short of breath. Did eat some.. Atrial fibrillation rate controlled Review of systems: Was done for constitutional, cardiovascular, GI, pulmonary. relevant finding as above Active Medications Apixaban (Apixaban 2.5 Mg Tablet) 2.5 mg PO BID [facility] Last Admin: 05/05/20 19:49 Dose: 2.5 mg Documented by: Ascorbic Acid (Ascorbic Acid 500 Mg Tab) 1,000 mg PO DAILY [facility] Last Admin: 05/05/20 07:59 Dose: 1,000 mg Documented by: Cholecalciferol (Cholecalciferol 25 Mcg (1000 Iu) Tablet) 25 mcg PO DAILY [facility] Last Admin: 05/05/20 07:59 Dose: 25 mcg Documented by: Dexamethasone (Dexamethasone 2 Mg Tab) 6 mg PO DAILY [facility] Last Admin: 05/05/20 07:59 Dose: 6 mg Documented by: Remdesivir 100 mg/ Sodium (Chloride) 250 mls @ 250 mls/hr IVPB DAILY@1000 [facility] Stop: 05/07/20 10:59 Last Admin: 05/05/20 11:14 Dose: 250 mls/hr Documented by: Melatonin (Melatonin 3 Mg Tablet) 3 mg PO HS PRN PRN Reason: Insomnia Last Admin: 05/04/20 22:15 Dose: 3 mg Documented by: Naloxone HCl (Naloxone 0.4 Mg/Ml 1 Ml Vial) 0.2 mg IV Q2M PRN PRN Reason: Opioid Reversal Zinc Sulfate (Zinc Sulfate 220 Mg Cap) 220 mg PO DAILY [facility] Last Admin: 05/05/20 07:59 Dose: 220 mg Documented by: Past medical history to include: Hypertension, back pain Social history: Daughter lives with her. No history of smoking or alcohol Family history: Reviewed, noncontributory to presentation Physical examination: VITAL SIGNS: 97.7, 83, 22, 142/76, 93% on 6 L GENERAL: Laying in bed, more short of breath EYES: Pupils equal. Conjunctiva normal. PSYCH: Alert and oriented x3; mood and affect anxious. NEUROLOGICAL: Cranial nerves grossly intact. Moving all 4 limbs Rest of the exam as per pulmonary and nursing INVESTIGATIONS, reviewed in the clinical context: May 11: D-dimer 4.05 creatinine 1.03 CRP 87.5 May 04: D-dimer 2.53 CRP 186 May 03: Potassium 4 creatinine 1.2 May 02: WBC 8.7 hemoglobin 13.7 potassium 4.6 bun 54 creatinine 1.3 to May 01: WBC 2.9 potassium 4.4 creatinine 1.61 d-dimer 1.81 CRP 54.5 Chest x-ray [April 30]: Basilar infiltrates April 30: WBC 3.4 hemoglobin 11.9 potassium 4 bun 52 creatinine 1.55 WBC 4.8 hemoglobin 13.4 platelets 362 sodium 129 bun 47 creatinine 1.65 Coronavirus [PCR] detected TSH 2.4 pro-BNP 2170 Troponin I less than 0.012 EKG tracing personally reviewed by me-atrial fibrillation with a rate of 128 Right foot [id number] for fracture Ultrasound venous Doppler right lower extremity: Negative for DVT Chest x-ray film personally reviewed by me-borderline cardiomegaly, bilateral infiltrates versus edema 2-D echocardiogram: Atrial fibrillation. EF 60-65%. Moderate concentric LVH Assessment and plan: -New onset of atrial fibrillation with a rapid ventricular rate. Patient started IV Cardizem., IV heparin-discontinued. Started on eliquis. Heart rate better controlled. Because of bradycardia both Cardizem and beta [place] discontinued. Still having sinus pauses and increased heart rate. Improved. -Acute congestive heart failure/pulmonary edema from underlying atrial fibrillation. Received IV Lasix. Better -Essential hypertension. Taken off antihypertensives because of bradycardia. -IV heparin monitoring-now discontinued -Hypertensive heart disease -Acute hypoxic respiratory failure possibly combination of fluid overload and COVID 19.-6 L of nasal cannula. Worsening -Bradycardia and sinus pauses from patient being on Lopressor and Cardizem. Cardizem and Lopressor discontinued -COVID 19 pneumonia. Initially seen by Dr. Almazan. He felt it was asymptomatic. Further reviewed by Dr. Patel. Has started the patient on IV Remdesivir and dexamethasone. Slow to respond. Discussed with the patient. Continue with steroids Remdesivir, eliquis. Oxygen requirement has gone up.
[2020-05-06 07:47] VITALS: RESP 20
[2020-05-06] MEDS: dexAMETHasone 2 MG TAB PO SCH (07:48)
[2020-05-06] MEDS: APIXABAN 2.5 MG TABLET PO SCH (07:48)
[2020-05-06] MEDS: ZINC SULFATE 220 MG CAP PO SCH (07:48)
[2020-05-06] MEDS: CHOLECALCIFEROL 25 MCG (1000 IU) TABLET PO SCH (07:48)
[2020-05-06] MEDS: ASCORBIC ACID 500 MG TAB PO SCH (07:49)
--- NOTE | 2020-05-06 08:01 | XR ---
EXAMINATION TYPE: XR chest 1V portable DATE OF EXAM: 05/06/2020 COMPARISON: 05/05/2020 INDICATION: Short of breath TECHNIQUE: Single frontal view of the chest is obtained. FINDINGS: The heart size is normal. The pulmonary vasculature is indistinct. Diffuse increased lung markings are present bilaterally. Some air bronchograms are in the left lower lobe. IMPRESSION: 1. Scattered bilateral nonspecific infiltrates. Correlate for atypical pneumonia. Others may be more focal in the left lower lobe. Findings are worsening from comparison.
[2020-05-06] MEDS ORDERED: QUEtiapine 25 MG TAB PO PRN (09:19)
[2020-05-06] MEDS ORDERED: ONDANSETRON 4 MG/2 ML VIAL IVP PRN (09:33)
[2020-05-06] MEDS: REMDESIVIR 100 MG in SODIUM CHLORIDE 0.9% 250 ML IVPB SCH (10:05)
--- NOTE | 2020-05-06 11:04 | P.PN ---
Subjective Progress Note Date: 05/06/20 This is a pleasant 84-year-old female patient with history of hypertension, back pain. She presented to the emergency room on 04/28/2020 after developing right foot pain for 3 days. She had struck the bedpost with her foot and it has since become more painful swollen black and blue. She denied any shortness of breath, cough congestion. No chest pain. She was noted to have elevated heart rate and was found to be in atrial fibrillation with rapid ventricular response. New onset. She was admitted for the same. Doppler of the right lower extremity negative for DVT. She also tested positive for CoVID 19 infection. No nausea, vomiting diarrhea. No fever, chills or night sweats. VQ scan revealed low probability of pulmonary embolism. Echocardiogram revealed normal left ventricular systolic function with ejection fraction 60-65%. Her follow-up chest x-ray yesterday revealed worsening bilateral lung infiltrates greater at the bases. She did receive 60 mg of IV Lasix on 04/30/2020. She is seen today in consultation on the selective care unit. Currently resting quite comfortably in bed. Awake and alert in no acute distress. Maintaining O2 saturations in the low 90s on room air. She's been afebrile. Hemodynamically stable. Heart rate controlled. White count 2.9. Hemoglobin 14.1. Lymphocytes 0.4. D-dimer 1.81. Sodium 132. Potassium 4.4. Creatinine 1.61. C-reactive protein 54.5. ProBNP 2930. This morning she had been having sinus pauses up to 2 seconds. Metoprolol has been discontinued. She is anticoagulated with Eliquis. Patient is seen today 05/03/2020 in follow-up on the selective care unit. She is currently resting comfortably in bed. Awake and alert in no acute distress. Maintaining O2 saturations in the low 90s on room air. No worsening shortness of breath, cough or congestion. Her right foot is less painful. Denies any chest pain, palpitations, lightheadedness or dizziness. White count 8.7. Hemoglobin 13.7. Lymphocytes 0.5. Sodium 13. Potassium 4.6. Creatinine 1.32. She is anticoagulated with Eliquis, remains on vitamin supplements. The patient was brought down to 2 L about 2 by nasal cannula with a pulse ox of 96%. The labs from today showing no major joint abnormalities. Creatinine is improving is down to 1.2. Inflammatory markers were not repeated. The d-dimer was 1.8 at the time of admission. She is on multivitamins. The patient did have a syncopal episode yesterday at around noontime. Currently her cardiac rh ythm is atrial fibrillation and the patient is on anticoagulation 05/04/2020, the patient remains on Decadron and REM. Today she is taking day #2 of REM. The patient is doing essentially the same as yesterday. LDH was 1014 and the CRP was 186. The d-dimer is also higher at 2.53. The patient is currently on oxygen at 4 L of the chest x-ray from today showing no major interval changes and there is some peripheral bilateral pulmonary infiltrates. There is multifocal opacities bilaterally without any significant change. The patient is on Eliquis 2.5 mg by mouth twice a day. No fever. No chills. No nausea. No vomiting. No altered mentation. Blood sugars of 112. 10/05/2020 on seeing the patient for a follow-up. On today's evaluation the patient is still on Decadron and she is on day #3 for REM. She is gradually getting worse in her oxygenation. Her FiO2 is up to 91%. Her d-dimer is at 4 and her LDH level is 1195 comparable to yesterday and the CRP slightly lower at 87. The chest x-ray from today is showing patchy bilateral pulmonary infiltrates with some progression and development of new infiltrates in the right upper lobe and there is still infiltrates in lower lobes along the left cardiac border despite worsening in her oxygenation, the patient reports that her breathing is stable for now. She is tolerating her diet. No nausea. No vomiting. She has chronic atrial fibrillation. She has been on Eliquis 2.5 mg by mouth twice a day. 05/06/2020 I'm seeing the patient for a follow-up. Unfortunately, there is ongoing progression and worsening in the patient's condition. Yesterday, the patient progressed to high flow oxygen and she was placed on 8 L and s ubsequently she decompensated further and currently she is on 100% nonrebreather facemask in addition to 15 L of oxygen by nasal cannula. She is able to maintain a saturation of 90-91%. She is very weak. She is getting more lethargic. She is getting more tired. She has short of breath even at rest. Clinically she is obviously worse. On her blood work, the patient has a LDH of 1195 and her CRP is 87. Her d-dimer is up to 4. She is on Decadron. She received a unit of convalescent plasma. She is on a 4 of REM. She is also on long-term anticoagulation with Eliquis 2.5 mg by mouth twice a day. I have elected discussion with the son and I urged him to establish a CODE STATUS as the patient's condition is progressively getting worse and would like to know if intubation is something that she would have wanted or the family would have wanted. Objective - Vital Signs Vital signs: Vital Signs Temp 99.0 F 05/06/20 07:45 Pulse 70 05/06/20 07:45 Resp 20 05/06/20 07:45 BP 140/66 05/06/20 07:45 Pulse Ox 97 05/06/20 07:45 Intake & Output 05/05/20 05/06/20 05/06/20 18:59 06:59 18:59 Intake Total 534 240 Output Total 300 400 Balance 234 -160 Weight 69.4 kg Intake: Oral 280 240 Blood Product 254 Ffp Pher Conval High [address] Unit [id number] Output: Urine 300 400 Other: Voiding Method Bedside Commode Bedside Commode Bedside Commode - Exam GENERAL EXAM: Alert, active, pleasant 84-year-old female patient on 100% nonrebreather facemask along with 15 L of oxygen by nasal cannula. She is short of breath. She is quite weak. She is lethargic. She is arousable. She is f ollowing commands and answering questions. HEAD: Normocephalic. EYES: Normal reaction of pupils, equal size. NOSE: Clear with pink turbinates. THROAT: No erythema or exudates. NECK: No masses, no JVD. CHEST: No chest wall deformity. LUNGS: Equal air entry with and the patient has diffuse crackles throughout the lung brandt bilaterally. CVS: S1 and S2 normal with no audible murmur, irregular rhythm. ABDOMEN: No hepatosplenomegaly, normal bowel sounds, no guarding or rigidity. SPINE: No scoliosis or deformity SKIN: No rashes CENTRAL NERVOUS SYSTEM: No focal deficits, tone is normal in all 4 extremities. EXTREMITIES: There is no peripheral edema. No clubbing, no cyanosis. Peripheral pulses are intact. - Labs CBC & Chem 7: 05/02/20 06:53 05/05/20 07:38 Labs: Abnormal Lab Results - Last 24 Hours (Table) 05/06/20 05/06/20 Range/Units 09:06 09:06 D-Dimer 8.68 H (<0.60) mg/L FEU Lactate Dehydrogenase 1161 H (313-618) U/L C-Reactive Protein 73.0 H (<10.0) mg/L Assessment and Plan Plan: 1 Covid 19 infection/pneumonia, and the patient's overall pulmonary status is progressively gotten worse and the patient is currently on 100% nonrebreather facemask along with 15 L of oxygen by nasal cannula and the chest x-ray showing worsening in pneumonia and the patient has progression her hypoxic respiratory failure. The patient is on Decadron. The patient is on REM day #4. She received a unit of convalescent plasma yesterday. 2 New onset atrial fibrillation, anticoagulated with Eliquis and the patient was taken off the beta blockers because of sinus pause. The patient's rate is under good control for now. No significant hemodynamic instability. The patient remains in atrial fibrillation for now. 3 Right foot pain secondary to trauma, no fractures identified 4 Acute renal failure, improved and the patient's creatinine is back to its baseline at 1.2, note that the patient also has history of chronic kidney disease stage III 5 Hyponatremia, improved his sodium level has also normalized 6 History of hypertension 7 chronic back pain 8 normal left ventricular function with an ejection fraction of 665% 9 low probability VQ scan Plan: Keep the patient on the percent nonrebreather facemask along with 15 L about 2 by nasal cannula Stop the Decadron stenosis patient to IV Solu-Medrol 60 mg every 6 hours She was given a unit of convalescent plasma Continue Remdesivir, day 4 Anticoagulated with Eliquis Repeat chest x-ray in a.m. Repeat inflammatory markers in A.M. Discussion with her son over the phone and would establish a CODE STATUS with the next few hours. We'll continue to follow. Prognosis poor and the patient's condition is obviously decompensated. She carries a very poor prognosis especially if she end up intubated on a mechanical ventilator.
[2020-05-06 11:24] VITALS: BP 130/82; PULSE 77; TEMP 97.6
[2020-05-06] MEDS ORDERED: guaiFENesin-Coden 100-10MG/5ML 10 ML CUP PO PRN (11:52)
--- NOTE | 2020-05-06 11:56 | P.PN ---
Subjective This is a very pleasant 84-year-old patient of Dr. Sands. She presented to the ER after she had been complaining of right foot pain for 3 days. She told her she got out of bed on Sunday and struck her right foot on a bedpost. High right toe pink especially was black and blue and she had some painful sensation in the right calf. She felt a bit dizzy yesterday. No chest pain or palpitations. Decided to present to the ER. She is found to be in atrial fibrillation. With elevated ventricular rate. She was started on a Cardizem drip. Admitted with uncontrolled atrial flutter fibrillation. Acute CHF exacerbation. Received IV Lasix. Patient started having sinus pauses. Beta [place] discontinued. Also found to have COVID 19 pneumonitis. Patient was started on Remdesivir by Dr. Patel. Also hypoxic. On oxygen. bit tired. Oxygen increased. More short of breath. Did eat some.. Atrial fibrillation rate controlled Subjective: 05/06/2020 this is a pleasant 84 years old female with multiple medical problems as below presents because of bilateral Covid pneumonia and acute hypoxic respiratory failure and found to have new onset A. 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 Patient still short of breath and her oxygen saturationHis worsening today with oxygen requirements increased from 8 yesterday to 15 L/m today. Patient is fully awake and oriented and she was still in the she does not want to be intubated if she got worse however she told me she wants to pursue the treatment although she told the staff earlier she wanted to do comfort care but when I talked to her she says she still wants to be treated She has some nausea and coughing Pulmonary team on the case Currently d-dimer is in increasing to 8.6 today, her BMP is unremarkable except for elevated BUN at 44, lactate dehydrogenase and C-reactive protein are slightly improved or the same with LDH 1161 and C-reactive protein is 73 She is currently on Eliquis 2.5 mg which is renal dose, dexamethasone 6 mg, vitamin C and zinc and remdesivir Review of systems CONSTITUTIONAL: No fever, no malaise, no fatigue. HEENT: No recent visual problems or hearing problems. Denied any sore throat. CARDIOVASCULAR: No orthopnea, PND, no palpitations, no syncope. PULMONARY: No chest wall tenderness, no hemoptysis. GASTROINTESTINAL: No diarrhea, no nausea, no vomiting, no abdominal pain. Norm oactive bowel sounds. NEUROLOGICAL: No headaches, no weakness, no numbness. HEMATOLOGICAL: Denies any bleeding or petechiae. Active Medications Generic Name Dose Route Start Last Admin Trade Name Freq PRN Reason Stop Dose Admin Apixaban 2.5 mg 04/30/20 11:30 05/06/20 07:48 Apixaban 2.5 Mg Tablet PO 2.5 mg BID ALINA Administration Ascorbic Acid 1,000 mg 05/02/20 11:00 05/06/20 07:49 Ascorbic Acid 500 Mg Tab PO 1,000 mg DAILY ALINA Administration Cholecalciferol 25 mcg 05/02/20 11:00 05/06/20 07:48 Cholecalciferol 25 Mcg (1000 Iu) Tablet PO 25 mcg DAILY ALINA Administration Guaifenesin/Codeine Phosphate 10 ml 05/06/20 11:52 Guaifenesin-Coden 100-10mg/5ml 10 Ml Cup PO Q6H PRN Cough Remdesivir 100 mg/ Sodium 250 mls @ 250 mls/hr 05/04/20 10:00 05/06/20 10:05 Chloride IVPB 05/07/20 10:59 250 mls/hr DAILY@1000 ALINA Administration Melatonin 3 mg 04/29/20 19:17 05/04/20 22:15 Melatonin 3 Mg Tablet PO 3 mg HS PRN Administration Insomnia Methylprednisolone Sodium Succinate 60 mg 05/06/20 12:00 05/06/20 11:25 Methylprednisolone Sod Succi 125 Mg/2 Ml Vial IV 60 mg Q6HR ALINA Administration Naloxone HCl 0.2 mg 04/28/20 18:13 Naloxone 0.4 Mg/Ml 1 Ml Vial IV Q2M PRN Opioid Reversal Ondansetron HCl 4 mg 05/06/20 09:33 05/06/20 10:04 Ondansetron 4 Mg/2 Ml Vial IVP 4 mg Q6HR PRN Administration Nausea And Vomiting Quetiapine Fumarate 25 mg 05/06/20 09:19 Quetiapine 25 Mg Tab PO DAILY PRN Agitation Zinc Sulfate 220 mg 05/02/20 11:00 05/06/20 07:48 Zinc Sulfate 220 Mg Cap PO 220 mg DAILY ALINA Administration Objective - Vital Signs Vital signs: Vital Signs Temp 97.6 F 05/06/20 11:16 Pulse 77 05/06/20 11:16 Resp 20 05/06/20 11:16 BP 130/82 05/06/20 11:16 Pulse Ox 96 05/06/20 11:16 Intake & Output 05/05/20 05/06/20 05/06/20 18:59 06:59 18:59 Intake Total 534 240 Output Total 300 400 Balance 234 -160 Weight 69.4 kg Intake: Oral 280 240 Blood Product 254 Ffp Pher Conval High [address] Unit [id number] Output: Urine 300 400 Other: Voiding Method Bedside Commode Bedside Commode Bedside Commode - Exam GENERAL: The patient is alert and oriented x3, not in any acute distress. Well developed, well nourished. HEENT: Pupils are round and equally reacting to light. EOMI. No scleral icterus. No conjunctival pallor. Normocephalic, atraumatic. No pharyngeal erythema. No thyromegaly. CARDIOVASCULAR: S1 and S2 present. No murmurs, rubs, or gallops. -PULMONARY: Chest is clear to auscultation, no wheezing or crackles. Bilateral crepitation ABDOMEN: Soft, nontender, nondistended, normoactive bowel sounds. No palpable organomegaly. MUSCULOSKELETAL: No joint swelling or deformity. EXTREMITIES: No cyanosis, clubbing, or pedal edema. NEUROLOGICAL: Gross neurological examination did not reveal any focal deficits. SKIN: No rashes. no petechiae. - Labs CBC & Chem 7: 05/02/20 06:53 05/05/20 07:38 Labs: Abnormal Lab Results - Last 24 Hours (Table) 05/06/20 05/06/20 Range/Units 09:06 09:06 D-Dimer 8.68 H (<0.60) mg/L FEU Lactate Dehydrogenase 1161 H (313-618) U/L C-Reactive Protein 73.0 H (<10.0) mg/L Assessment and Plan Assessment: -COVID 19 pneumonia. Pulmonary team on the case. Continue with IV Remdesivir and dexamethasone. Also on vitamin C and zinc -Acute hypoxic respiratory failure possibly combination of fluid overload and COVID 19.-15 L of nasal cannula. Worsening -New onset of atrial fibrillation with a rapid ventricular rate. Started on eliquis. Heart rate controlled. Because of bradycardia both Cardizem and beta [place] discontinued. Still having sinus pauses and increased heart rate. Improved. -Essential hypertension. Taken off antihypertensives because of bradycardia. -IV heparin monitoring-now discontinued -Hypertensive heart disease -Bradycardia and sinus pauses from patient being on Lopressor and Cardizem. Cardizem and Lopressor discontinued Prognosis is guarded
[2020-05-06] MEDS ORDERED: methylPREDNISolone SOD SUCCI 125 MG/2 ML VIAL IV SCH (12:00)
== END 2020-05-06 16:49 | disposition hospice, inpatient (51) | DRG 177 ==
LOC: EC 14:15 → 3SCARD 17:17
PROVIDERS: ADMIT Hospitalist; ATTEND Hospitalist
DX: U07.1 COVID-19 (principal); J12.82 Pneumonia due to coronavirus disease 2019; J96.01 Acute respiratory failure with hypoxia; E87.1 Hypo-osmolality and hyponatremia; I13.0 Hypertensive heart and chronic kidney disease with heart failure and stage 1 through stage 4 chronic kidney disease, or unspecified chronic kidney disease; I48.20 Chronic atrial fibrillation, unspecified; I48.92 Unspecified atrial flutter; N17.9 Acute kidney failure, unspecified; S90.31XA Contusion of right foot, initial encounter; W22.03XA Walked into furniture, initial encounter; Z51.5 Encounter for palliative care; Z66 Do not resuscitate; I49.5 Sick sinus syndrome; I50.9 Heart failure, unspecified; N18.30 Chronic kidney disease, stage 3 unspecified; Z79.01 Long term (current) use of anticoagulants; Z88.5 Allergy status to narcotic agent; M79.661 Pain in right lower leg; Z79.818 Long term (current) use of other agents affecting estrogen receptors and estrogen levels
CPT/HCPCS: 36415; 71045; 71046; 78582; 80048; 80053; 83615; 83735; 83880; 84443; 84484; 85025; 85379; 85610; 85730; 86140; 86850; 86900; 86901; 87635; 93005; 93306; 99285

== ENCOUNTER 2020-05-06 15:56 | Inpatient (IN) | payer MEDICAID ==
[2020-05-06] MEDS ORDERED: ATROPINE OPHTH SOLN 1% 5ML BTL SUBLINGUAL PRN (17:04)
[2020-05-06] MEDS ORDERED: ONDANSETRON 4 MG/2 ML VIAL IVP PRN (17:04)
[2020-05-06] MEDS ORDERED: HYDROmorphone (PF) 50 MG in SODIUM CHLORIDE 0.9% 45 ML IV SCH (17:15)
[2020-05-06] MEDS ORDERED: ACETAMINOPHEN SUPPOSITORY 650 MG SUPP RECTAL PRN (18:34)
[2020-05-06] MEDS: LORazepam 2 MG/ML INJ IV PRN (22:24)
[2020-05-07 06:08] VITALS: RESP 28
[2020-05-07] MEDS: LORazepam 2 MG/ML INJ IV PRN (08:26)
[2020-05-07 08:39] VITALS: PULSE 120
--- NOTE | 2020-05-08 00:43 | P.HPIM ---
History of Present Illness Please consider this note as combined H&P and discharge summary Diagnoses -End-of-life care, comfort care -COVID 19 pneumonia. -Acute hypoxic respiratory failure -New onset of atrial fibrillation with a rapid ventricular rate. -Essential hypertension. -Hypertensive heart disease -Bradycardia and sinus pauses Hospital course this is a pleasant 84 years old female with multiple medical problems as below presents because of bilateral Covid pneumonia and acute hypoxic respiratory failure and found to have new onset A. 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 pt was treated with dexamethasone 6 mg, vitamin C and zinc and remdesivir, however her medical condition deteriorted and she was in more progressive resp distress needing more oxygen, eventually pt opted to proceed with comfort care measure, family were at bed and were aware of pt decision pt today morning is at 9:03 Physical exam Gen: patient is a unresponsive with no signs of life. CVS: No palpable carotid pulse, nor heartbeats RRR, no murmur Lungs: No breathing Abdomen: soft, no distention Extremity: no leg edema or induration Past Medical History Past Medical History: Hypertension Additional Past Medical History / Comment(s): back pain, History of Any Multi-Drug Resistant Organisms: None Reported Past Surgical History: No Surgical Hx Reported Past Psychological History: No Psychological Hx Reported Smoking Status: Never smoker Past Alcohol Use History: None Reported Past Drug Use History: None Reported Medications and Allergies Home Medications Medication Instructions Recorded Confirmed Type Cholecalciferol [Vitamin D3 (25 25 mcg PO DAILY 04/28/20 05/06/20 History Mcg = 1000 Iu)] Irbesartan/Hydrochlorothiazide 1 tab PO DAILY 04/28/20 05/06/20 History [Irbesartan-Hctz 150-12.5 mg Tb] [place]-3 Fatty Acids/Fish Oil [Fish 1 cap PO DAILY 04/28/20 05/06/20 History Oil 1,000 mg Softgel] Apixaban [Eliquis] 2.5 mg PO BID #60 tab 04/30/20 05/06/20 Rx Allergies Allergy/AdvReac Type Severity Reaction Status Date / Time morphine AdvReac Nausea & Verified 05/06/20 17:03 Vomiting Physical Exam Vitals: Vital Signs Pulse Resp Pulse Ox 05/07/20 08:38 120 H 28 H 05/07/20 08:00 127 H 05/07/20 06:03 28 H 05/06/20 20:00 20 83 L Intake and Output 05/06/20 05/07/20 05/07/20 22:59 06:59 14:59 Intake Total 120.167 11.267 3.5 Output Total 0 Balance 120.167 11.267 3.5 Intake: Intake, IV Titration 0.167 11.267 3.5 Amount HYDROmorphone (PF) 50 mg 0.167 11.267 3.5 In Sodium Chloride 0.9% 45 ml @ Per Protocol IV . Q0M [facility] Rx#:[id number] Oral 120 Output: Urine 0 Stool 0 Other: # Voids 0 # Bowel Movements 0 Weight 69.4 kg
== END 2020-05-07 11:13 | disposition expired | DRG 951 ==
LOC: 3SCARD 16:49
PROVIDERS: ADMIT Hospitalist; ATTEND Hospitalist
DX: Z51.5 Encounter for palliative care (principal); U07.1 COVID-19; J12.82 Pneumonia due to coronavirus disease 2019; J96.01 Acute respiratory failure with hypoxia; I48.91 Unspecified atrial fibrillation; N18.30 Chronic kidney disease, stage 3 unspecified; I13.10 Hypertensive heart and chronic kidney disease without heart failure, with stage 1 through stage 4 chronic kidney disease, or unspecified chronic kidney disease; I49.5 Sick sinus syndrome; Z79.01 Long term (current) use of anticoagulants; Z66 Do not resuscitate; Z79.899 Other long term (current) drug therapy; Z88.5 Allergy status to narcotic agent